=== PATIENT | female | born 1940 | race Caucasian/White ===

== ENCOUNTER 2017-07-13 13:32 | Inpatient (IN) | payer MEDICARE, BC ==
[2017-07-13] MEDS ORDERED: Loperamide 2 MG Cap PO PRN (14:38)
[2017-07-13] MEDS ORDERED: EPINEPHRINE IM PRN (14:38)
[2017-07-13] MEDS: Sodium Chloride 0.9% 10 ML Syringe FLUSH PRN ×2 (15:44→22:48)
[2017-07-13] MEDS: Furosemide 40 MG/4 ML VIAL IV SCH (15:44)
[2017-07-13] MEDS ORDERED: PROTEIN SUPPLEMENT 15 GM PO SCH (20:00)
[2017-07-13] MEDS ORDERED: Warfarin 2 MG Tab PO SCH (20:00)
[2017-07-13] MEDS: Calcium Carbonate/Vitamin D3 1250 MG-200 Unit Tab PO SCH (20:03)
[2017-07-13] MEDS: Ferrous Sulfate 325 MG Tab PO SCH (20:03)
--- NOTE | 2017-07-13 21:31 | HP ---
CHIEF COMPLAINT: Swelling. HISTORY OF PRESENT ILLNESS: This is a 76-year-old female with a known history of diastolic heart failure and EF of 65% back in 2014, who has had previous admissions for edema and anasarca. She also has a pacemaker. She has not had difficulty with shortness of breath, but the swelling is getting to the point where in the last few days she has even had trouble getting up out of a chair. She is minimally dizzy. Her diuresis outpatient is limited by low blood pressures. Her Lasix 40 mg twice daily was switched to Bumex 1 mg twice daily along with Aldactone on Thursday, but her weight is up 1 pound. She has swelling through the abdomen and legs, but not to the point that she had back in 01/27/2016 when she was diuresed for like 24 pounds. Otherwise, she has felt fine. No fevers. No chills. No recent cellulitis like changes. ALLERGIES: Bee stings, AC inhibitors cause cough, Keflex causes a rash. MEDICATION: List is reviewed, she uses ALA 150 twice daily, Claritin-D, Aldactone 25 mg usually at noon, vitamin D 4 days a week, mag oxide 400 daily, Bumex 1 mg twice daily, folic acid daily 1 mg, levothyroxine 88 mcg daily, Minocin 100 mg daily, lactobacillus, warfarin between 2 and 3 mg as per the INR Clinic, Lexapro 1 tablet daily, B12 1000 weekly, EpiPen as needed, B12 100 mcg daily, Os-Gabino 500 twice a day, Imodium as needed, iron one twice daily, vitamin B1 100 mg daily and protein powder 15 g twice daily. PAST MEDICAL HISTORY: 1. Complex including uterine cancer status post chemo and hysterectomy in 2012, complicated by an MRSA infection which led to diskitis and vertebral osteomyelitis at T12 through L1 with surgery in [place] followed by 6 weeks of [place]. Otherwise, she has chronic atrial fibrillation, diastolic heart failure, previous admissions in the fall of 2014 and 11/2015. She used to use metolazone p.r.n., but stopped due to hypotension. 2. History of pacemaker placement after ablation for atrial fibrillation in 2014. Previous thrombosis of the right upper extremity. She is anticoagulated with Coumadin, B12 deficiency, history of gastric bypass, hypothyroidism, vitamin D deficiency, chronic malnutrition with concern for protein losses which has been evaluated in the past. She did well and increased protein supplementation. Albumin is usually around 2.5 to 2.7. 3. Mood disorder, on Lexapro, Froin's syndrome, peripheral neuropathy, previously on Lyrica, but stopped due to peripheral edema, history of C. diff diarrhea, history of shingles, left shoulder 2016 with postherpetic neuralgia, history of recurrent cellulitis in the legs due to Pseudomonas at one point. She has also had Stenotrophomonas maltophilia in the past. Adrenal mass 2 cm in 2015, stable, no further followup was recommended. Chronic anemia. History of hyponatremia. PAST SURGICAL HISTORY: The patient has had a hysterectomy as discussed above. She has had a bilateral knee replacement, left hip replacement and right shoulder replacement. She has had a T12 through L1 laminectomy with T12 through L1 fusion with rods. Gastric bypass noted, cataract surgery, hysterectomy with salpingo oophorectomy, bunionectomy and toe amputation. SOCIAL HISTORY: The patient is . She lives at [facility], but does independent living. She has one son in town, who is a [employer] assistant men's lacrosse coach. FAMILY HISTORY: Both parents are . She has sister and brother who are living. Father had Alzheimer disease and her mother had heart failure, otherwise. REVIEW OF SYSTEMS: General: She has had weight changes. Her weight is up now 10 pounds since 05/25 at least. She has no fever, no chills. HEENT: No trouble swallowing. No sore throat. Cardiac: No chest pain. No palpitations. Respiratory: No shortness of breath. No orthopnea, but she has had edema. No cough, otherwise. Musculoskeletal: No new aches or pains. Skin: No joint rashes. Neurologic: No confusion. She has felt occasionally minimally dizzy, but relates that to blood pressure. Otherwise, all systems reviewed and found to be negative unless otherwise stated. PHYSICAL EXAMINATION: Vital signs: Weight is 210 pounds or 95.2 kg, blood pressure 100/64, temperature 97.9, pulse 73, O2 99 on room air. General: She is in no acute distress. Heart: Regular rate and rhythm. S1, S2 without murmur. Lungs: Sounds are clear to auscultation bilaterally without crackles or wheezes. Abdomen: Positive bowel sounds. Soft and nontender. There is just trace edema located over the left lateral abdominal wall. No sacral edema. Extremities: Shows 3+ edema to her knee and 2+ edema above her gill. Mental status: She is alert and orientated x3. Psych: She is not depressed or anxious. Neck: Has some JVD present, but it is supple without any tracheal deviation or no thyromegaly. DIAGNOSTIC DATA: EKG is done which shows a paced rhythm. Her chest x-ray is pending. TSH is pending. Glucose 123, BUN 18, creatinine 1.3, sodium 139, potassium 4.9, chloride 109, bicarb 22, calcium 7.5, phosphorus 3.7, albumin 2.7. Her magnesium was 1.9. Her white count is 6.1, hemoglobin 10.5, and platelets 244. Her proBNP was also 1843. ASSESSMENT: 1. Acute on chronic diastolic heart failure exacerbation with known EF of 65% back in 2015. 2. Generalized edema and anasarca. The patient has certainly had more issues with this in the past, but I would like to catch this early and get her diuresed. I think she simply just not responding to her oral antibiotics. 3. Morbid obesity with history of gastric bypass. 4. Moderate malnutrition with albumin of 2.7. 5. Remote history of uterine cancer. She has followed with Gynecology. There has been no indication of recurrence. Her last scans were done in 2014, but she has been following with [facility] through [place]. 6. 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 Infectious Disease had recommended lifelong antibiotics. She is on minocycline and tolerating this. 7. History of C. diff. She has not had any recurrence. 8. Hypothyroidism. She is on levothyroxine. We will adjust the dose if needed based on her TSH level. 9. Mood disorder. She will continue her Lexapro. 10.History of pacemaker for atrial fibrillation with ablation. She is on Coumadin. Her level was therapeutic on the , we will repeat tomorrow. 11.Peripheral neuropathy. She had her B12 injection today. She is also on oral B12. PLAN: At this point, the patient is admitted for acute cares. We will diurese her with IV Lasix 40 mg IV twice daily. We will get a chest x-ray. We will get her legs wrapped with Ac wraps. We will get her up and moving and try to mobilize some fluid. I anticipate that after good diuresis, she may be home in 2 days, which she is hopeful of. Otherwise, if she feels lightheaded or dizzy, we will treat her symptomatically for that. We will have her evaluated by PT tomorrow. She is a code level 1. For DVT prophylaxis she is already on Coumadin. MKA: 07/13/2017 16:43:15 MODL: 07/13/2017 21:23:38 /[id number]
[2017-07-14] MEDS: Levothyroxine 88 MCG Tab PO SCH (06:00)
[2017-07-14] MEDS: Spironolactone 25 MG Tab PO SCH (07:35)
[2017-07-14] MEDS: Citalopram 20 MG Tab PO SCH (07:35)
[2017-07-14] MEDS: Ferrous Sulfate 325 MG Tab PO SCH ×2 (07:35→20:22)
[2017-07-14] MEDS: Lactobacillus Rhamnosus GG (Probiotic) Cap PO SCH (07:35)
[2017-07-14] MEDS: Furosemide 40 MG/4 ML VIAL IV SCH (07:35)
[2017-07-14] MEDS: Folic Acid 1 MG Tab PO SCH (07:36)
[2017-07-14] MEDS: Ergocalciferol (Vitamin D2) 50,000 Unit Cap PO SCH (07:36)
[2017-07-14] MEDS: Thiamine 100 MG Tab PO SCH (07:36)
[2017-07-14] MEDS: Magnesium Oxide 400 MG Tab PO SCH (07:36)
[2017-07-14] MEDS: Calcium Carbonate/Vitamin D3 1250 MG-200 Unit Tab PO SCH ×2 (07:36→20:21)
[2017-07-14] MEDS: Cyanocobalamin (Vitamin B12) 250 MCG Tab PO SCH (07:37)
[2017-07-14] MEDS: Sodium Chloride 0.9% 10 ML Syringe FLUSH PRN ×2 (07:38→20:22)
[2017-07-14] MEDS: MINOCYCLINE 100 MG PO SCH (07:39)
[2017-07-14] MEDS ORDERED: Enoxaparin 40 MG/0.4 ML Syringe SUBCUT ONE (08:09)
--- NOTE | 2017-07-14 09:21 | PN ---
Progress Note for MILANA JOHNSON Date: 07/14/2017 Room #: VM.205 SUBJECTIVE: This is hospital day #2 on a 76-year-old admitted for diastolic heart failure exacerbation and anasarca. She was failing outpatient management. She is quite pleased that she has lost nearly 10 pounds. She is down 2.7 L. She is not feeling lightheaded or dizzy. She was urinating so much and incontinent, she did request a Ying. Otherwise, she has had no pain anywhere. Her breathing is good. Her leg swelling is better. OBJECTIVE: Vital Signs: Weight is 89.3 kg, temperature 98.2, pulse 67, blood pressure 110/59, respiratory rate 18, and O2 96 on room air. General: She is in no acute distress. Heart: Regular rate and rhythm. Lungs: Sounds are clear to auscultation bilaterally without crackles or wheezes. Abdomen: Soft and positive bowel sounds. Extremities: Warm and dry. Ac wraps in place. She has just 1+ edema at her gill. Mental Status: She is alert and orientated x3. Skin: She is not pale. LABORATORY DATA: Otherwise, lab work shows a white count of 4.8; hemoglobin 9.5, which is near her baseline; and platelets 182. INR low at 1.3. Sodium 139, potassium 4.6, chloride 108, bicarb 29, BUN 23, creatinine 1.4, calcium 7.3, and glucose 75. ASSESSMENT: 1. [id number] diastolic heart failure exacerbation with known EF of 65%. 2. Generalized anasarca, improving with IV diuresis. 3. Atrial fibrillation status post ablation and pacemaker. She is on Coumadin. She has a subtherapeutic INR. We will give her a DVT prophylaxis dose of Lovenox today. We will continue her on the 4 mg of Coumadin daily and repeat tomorrow. She normally did take 3 mg at home, but she did get 4 mg last night. Otherwise, mild renal insufficiency. Creatinine is up to 1.4. We will continue to monitor. We will repeat that tomorrow. 4. History of gastric bypass surgery and malnutrition. She is on protein supplements, 15 twice daily. 5. B12 deficiency. She just got her shot in the clinic. 6. Mood disorder, stable. 7. History of methicillin-resistant staphylococcus aureus infection with osteomyelitis in the spine. She is on chronic minocycline. She is on precautions for that. 8. Peripheral neuropathy. We will have her up and working with PT. PLAN: At this point, the patient will continue acute cares. I will decrease her Lasix from 40 IV b.i.d. to 20 IV b.i.d. We will keep the Ying in today, but we will remove it tomorrow. She will likely be discharged home tomorrow as long as she is up and doing well with PT and not feeling lightheaded or dizzy. I will likely even discharge her home on the same doses of Lasix. I think that will work better now that some of the fluid is off. I did discuss with her that potentially she was not absorbing her Coumadin and that is maybe why her INR is low. Otherwise, she will continue the Ac wraps. MKA: 07/14/2017 08:47:14 MODL: 07/14/2017 09:10:20 /[id number]
[2017-07-14] MEDS ORDERED: Warfarin 2 MG Tab PO SCH ×2 (20:00)
[2017-07-14] MEDS: Furosemide 20 MG/2 ML VIAL IV SCH (20:34)
[2017-07-15] MEDS: Levothyroxine 88 MCG Tab PO SCH (06:11)
[2017-07-15 06:20] VITALS: BP 114/58
[2017-07-15] MEDS: Calcium Carbonate/Vitamin D3 1250 MG-200 Unit Tab PO SCH (07:38)
[2017-07-15] MEDS: Lactobacillus Rhamnosus GG (Probiotic) Cap PO SCH (07:38)
[2017-07-15] MEDS: Folic Acid 1 MG Tab PO SCH (07:38)
[2017-07-15] MEDS: Furosemide 20 MG/2 ML VIAL IV SCH (07:38)
[2017-07-15] MEDS: Thiamine 100 MG Tab PO SCH (07:38)
[2017-07-15] MEDS: Magnesium Oxide 400 MG Tab PO SCH (07:38)
[2017-07-15] MEDS: Cyanocobalamin (Vitamin B12) 250 MCG Tab PO SCH (07:38)
[2017-07-15] MEDS: Citalopram 20 MG Tab PO SCH (07:38)
[2017-07-15] MEDS: Ergocalciferol (Vitamin D2) 50,000 Unit Cap PO SCH (07:38)
[2017-07-15] MEDS: Spironolactone 25 MG Tab PO SCH (07:38)
[2017-07-15] MEDS: Ferrous Sulfate 325 MG Tab PO SCH (07:38)
[2017-07-15] MEDS: MINOCYCLINE 100 MG PO SCH (07:39)
[2017-07-15] MEDS ORDERED: Enoxaparin 40 MG/0.4 ML Syringe SUBCUT ONE (09:05)
--- NOTE | 2017-07-15 13:53 | PCM.DCSUM1 ---
Discharge Summary - Discharge Data Discharge Date: 07/15/17 Discharge Disposition: Home, W Home Health Agency 06 Condition: Good - Patient Instructions Diet: Usual Diet as Tolerated Activity: As Tolerated Driving: Do Not Drive Showering/Bathing: May Shower Notify Provider of: Fever, Swelling and Redness Other/Special Instructions: 1. Recheck in the clinic on 07/[address] Mohamud. 2. We will set up home health for assistance with medications and leg wraps. They will be able to draw the INR on Thursday. 3. Discontinue the Bumex and we will have you go back to the Lasix 40 mg twice daily - Discharge Plan Prescriptions/Med Rec: Furosemide [Lasix] 40 mg PO BID #60 tablet Home Medications: Home Meds Ferrous Sulfate 325 mg PO BID 09/11/14 [History] Lactobacillus Acidophilus [Acidophilus] 1 tab PO DAILY 09/11/14 [History] Thiamine [Vitamin B-1] 100 mg PO DAILY 09/11/14 [History] Calcium Carbonate [Calcium] 500 mg PO BID 06/06/15 [History] Cholecalciferol (Vitamin D3) [Vitamin D3] 50,000 unit PO MOTUWEFR@06/06/15 [ History] Cyanocobalamin (Vitamin B-12) [Cyanocobalamin Injection] 1,000 mcg IM WEEKLY [History] Cyanocobalamin (Vitamin B-12) [Vitamin B-12] 100 mcg PO DAILY 06/06/15 [History] EPINEPHrine [Epipen] 1 dose IM ASDIRECTED PRN 06/06/15 [History] Levothyroxine [Synthroid] 88 mcg PO ACBREAKFAST 06/06/15 [History] Loperamide [Imodium AD] 2 mg PO ASDIRECTED PRN 06/06/15 [History] Minocycline [Minocin] 100 mg PO DAILY 06/06/15 [History] Protein Supplement [Protein Powder] 15 gm PO BID 06/06/15 [History] Escitalopram [Lexapro] 20 mg PO DAILY 10/30/15 [History] Spironolactone [Aldactone] 25 mg PO DAILY 10/30/15 [History] Warfarin [Coumadin] 4 mg PO MOFR@199910/30/15 [History] Folic Acid 1 mg PO DAILY 07/13/17 [History] Loratadine/Pseudoephedrine [Loratadine-D 24Hr] 1 tab PO DAILY 07/13/17 [History] Magnesium Oxide [Magnesium] 400 mg PO DAILY 07/13/17 [History] Non-Formulary Medication [NF Drug] 150 mg PO BID 07/13/17 [History] Furosemide [Lasix] 40 mg PO BID #60 tablet 07/15/17 [Rx] Referrals: Daniela Mohamud, [Primary Care Provider] - 07/28/17 10:50 am (You have a follow up appt. with Dr. Edilberto Mohamud on July 28, 2017 at 10:50---[facility]) - General Info Date of Service: 07/15/17 Admission Dx/Problem (Free Text: Acute on chronic CHF Atrial fibrillation H/O gastric bypass B12 deficiency H/O MRSA Peripheral neuropathy 76 yo female seen on hospital day 3. Patient was admitted to acute cares for acute exacerbation of CHF. She was started on IV lasix 40 mg BID. Weight did come down about 10 lb in the first day. The Lasix was then switched to 20 mg BID and a gutiérrez was placed due to urinary frequency and incontinence. States that she is doing well today. Weight is down a total of 8 kg. Feels the swelling has improved greatly. Nurses have been using kaylyn wraps to help with swelling. Denies dizziness or lightheadedness. No troubles with SOB or chest tightness. Would like to go home today. Patient will need the assistance of a home health nurse for assistance with medications and leg wraps/compression stockings. INR is only at 1.5 today. She did receive a dose of 40 mg Lovenox yesterday and 4 mg of coumadin HS. She is routinely managed by the [place] anticoagulation clinic. States that she is due for her next INR this thursday (). Patient will need assistance from a home health nurse for medication management and leg wraps/compression stocking. Dr. Mohamud will be overseeing her treatment plan. She will be discharged with [facility]. - Review of Systems General: Denies: Weakness Pulmonary: Denies: Shortness of Breath Cardiovascular: Denies: Chest Pain Gastrointestinal: Denies: Abdominal Pain, Constipation, Diarrhea - Patient Data Vitals - Most Recent: Last Vital Signs Temp 36.5 C 07/15/17 06:00 Pulse 60 07/15/17 06:00 Resp 20 07/15/17 06:00 BP 114/58 L 07/15/17 06:00 Pulse Ox 100 07/15/17 06:00 Weight - Most Recent: 87.09 kg I&O - Last 24 hours: Intake & Output 07/14/17 07/15/17 07/15/17 22:59 06:59 14:59 Intake Total 180 400 420 Output Total 3300 1075 Balance 180 -2900 -655 Lab Results - Last 24 hrs: Laboratory Results - last 24 hr 07/15/17 07/15/17 07/15/17 Range/Units 06:27 06:27 06:27 WBC 5.0 (4.0-10.0) x10^3/uL RBC 3.01 L (4.00-5.50) x10^6/uL Hgb 10.3 L (12.0-16.0) g/dL Hct 30.6 L (33.0-47.0) % MCV 101.7 H (78.0-93.0) fL MCH 34.2 H (26.0-32.0) pg MCHC 33.7 (32.0-36.0) g/dL RDW Coeff of Navin 14.4 (10.0-15.0) % Plt Count 193 (130-400) x10^3/uL Neut % (Auto) 66.5 (50.0-80.0) % Lymph % (Auto) 24.2 L (25.0-50.0) % [place] % (Auto) 7.9 (2.0-11.0) % Eos % (Auto) 1.0 (0.0-4.0) % Baso % (Auto) 0.4 (0.2-1.2) % PT 15.2 H (9.8-11.8) SEC INR 1.4 L (2.0-3.5) Sodium 136 (136-145) mmol/L Potassium 4.3 (3.5-5.1) mmol/L Chloride 104 (98-107) mmol/L Carbon Dioxide 29 (21-32) mmol/L BUN 23 H (7-18) mg/dL Creatinine 1.5 H (0.55-1.02) mg/dL Est Cr Clr Drug Dosing 33.96 mL/min Estimated GFR (MDRD) 34 Glucose 78 (74-106) mg/dL Calcium 7.6 L (8.5-10.1) mg/dL Med Orders - Current: Current Medications Discontinued Medications Calcium Carbonate (Calcium Carbonate/Vitamin D 1250 Mg-200 Unit) 1 tab PO BID [facility] Last Admin: 07/15/17 07:38 Dose: 1 tab Citalopram Hydrobromide (Celexa) 40 mg PO DAILY [facility] Last Admin: 07/15/17 07:38 Dose: 40 mg Cyanocobalamin (Vitamin B12) 125 mcg PO DAILY [facility] Last Admin: 07/15/17 07:38 Dose: 125 mcg Enoxaparin Sodium (Lovenox) 40 mg SUBCUT ONETIME ONE Stop: 07/14/17 08:10 Last Admin: 07/14/17 09:15 Dose: 40 mg Enoxaparin Sodium (Lovenox) 40 mg SUBCUT ONETIME ONE Stop: 07/15/17 09:06 Last Admin: 07/15/17 09:19 Dose: 40 mg Ergocalciferol (Vitamin D2) 50,000 units PO MoTuWeFr@0800 [facility] Last Admin: 07/15/17 07:38 Dose: 50,000 units Ferrous Sulfate (Ferrous Sulfate) 325 mg PO BID [facility] Last Admin: 07/15/17 07:38 Dose: 325 mg Folic Acid (Folic Acid) 1 mg PO DAILY [facility] Last Admin: 07/15/17 07:38 Dose: 1 mg Furosemide (Lasix) 40 mg IV BIDDIURETIC [facility] Last Admin: 07/14/17 07:35 Dose: 40 mg Furosemide (Lasix) 20 mg IV BIDDIURETIC [facility] Last Admin: 07/15/17 07:38 Dose: 20 mg Lactobacillus Rhamnosus (Culturelle) 1 cap PO DAILY [facility] Last Admin: 07/15/17 07:38 Dose: 1 cap Levothyroxine Sodium (Synthroid) 88 mcg PO ACBREAKFAST [facility] Last Admin: 07/15/17 06:11 Dose: 88 mcg Loperamide HCl (Imodium) 2 mg PO ASDIRECTED PRN PRN Reason: Diarrhea Last Admin: 07/14/17 20:22 Dose: 2 mg Magnesium Oxide (Magnesium Oxide) 400 mg PO DAILY [facility] Last Admin: 07/15/17 07:38 Dose: 400 mg Non-Formulary Medication (Epinephrine [Epipen]) 1 dose IM ASDIRECTED PRN PRN Reason: anaphylaxis Non-Formulary Medication (Protein Supplement [Protein Powder]) 15 gm PO BID [facility] Minocycline 100 Mg (CapOwn Med) 0 each PO DAILY [facility] Last Admin: 07/15/17 07:39 Dose: 1 each Sodium Chloride (Saline Flush) 10 ml FLUSH ASDIRECTED PRN PRN Reason: Keep Vein Open Last Admin: 07/14/17 20:22 Dose: 10 ml Spironolactone (Aldactone) 25 mg PO DAILY [facility] Last Admin: 07/15/17 07:38 Dose: 25 mg Thiamine HCl (Vitamin B-1) 100 mg PO DAILY [facility] Last Admin: 07/15/17 07:38 Dose: 100 mg Warfarin Sodium (Coumadin) 3 mg PO SUTUWETHSA@1999 [facility] Warfarin Sodium (Coumadin) 4 mg PO MOFR@1999 [facility] Last Admin: 07/13/17 20:03 Dose: 4 mg Warfarin Sodium (Coumadin) 4 mg PO BEDTIME [facility] Last Admin: 07/14/17 20:21 Dose: 4 mg - Exam General: Reports: Alert, Oriented Lungs: Reports: Clear to Auscultation, Normal Respiratory Effort. Denies: Decreased Breath Sounds, Crackles, Rales, Rhonchi, Wheezing Cardiovascular: Reports: Regular Rate, Regular Rhythm GI/Abdominal Exam: Normal Bowel Sounds, Soft, Non-Tender Extremities: Pedal Edema (trace) Skin: Reports: Warm, Dry Psy/Mental Status: Reports: Alert, Normal Affect, Normal Mood *Q Meaningful Use (DIS) - VTE *Q VTE Criteria *Q: - Stroke *Q Stroke Criteria *Q: - AMI *Q AMI Criteria *Q:
== END 2017-07-15 10:35 | disposition home health service (06) | DRG 292 ==
LOC: VM.MS 14:43
PROVIDERS: ADMIT Internal Medicine; ATTEND Internal Medicine
DX: I50.33 Acute on chronic diastolic (congestive) heart failure (principal); E44.0 Moderate protein-calorie malnutrition; I48.91 Unspecified atrial fibrillation; E53.8 Deficiency of other specified B group vitamins; G62.9 Polyneuropathy, unspecified; F39 Unspecified mood [affective] disorder; E03.9 Hypothyroidism, unspecified; Z68.27 Body mass index [BMI] 27.0-27.9, adult; Z86.14 Personal history of Methicillin resistant Staphylococcus aureus infection; Z95.0 Presence of cardiac pacemaker; Z98.84 Bariatric surgery status; Z79.01 Long term (current) use of anticoagulants
CPT/HCPCS: 36415; 71020; 80048; 85025; 85610; 93005; 97161-GP; 97165-GO; A9270-GY; J1650; J1940; J7050

== ENCOUNTER 2017-12-02 13:36 | Inpatient (IN) | payer MEDICARE, BC ==
[2017-12-02] MEDS ORDERED: Sodium Chloride 0.9% 10 ML Syringe FLUSH PRN (13:37)
[2017-12-02] MEDS: Furosemide 40 MG/4 ML VIAL IV SCH (15:45)
[2017-12-02] MEDS: PROTEIN SUPPLEMENT PO SCH (20:08)
[2017-12-02] MEDS: Calcium Carbonate/Vitamin D3 1250 MG-200 Unit Tab PO SCH (20:08)
[2017-12-02] MEDS: Loperamide 2 MG Cap PO PRN (21:37)
--- NOTE | 2017-12-02 23:25 | HP ---
CHIEF COMPLAINT: Shortness of breath and edema with weight gain. HISTORY OF PRESENT ILLNESS: This is a 77-year-old female who has a longstanding history of lymphedema, chronic diastolic heart failure, her last EF was done after her June admission actually in September was 70% with no pulmonary hypertension. She has mild tricuspid regurgitation. She has had a previous pacemaker and AFib, but no known coronary artery disease. Back in June, the patient was admitted for weight gain and similar problems. She was diuresed appropriately. She was maintained on a regimen of Lasix and Aldactone, but unfortunately despite her weight loss being down over 8 pounds on that admission, she has steadily gained weight back over the past couple of months. We have tried adjusting her diuretics even up to 3 times a day, but unfortunately those were only temporary and she would have low blood pressures like at the dentist she was only 90/55 this morning. She would feel wobbly, need to use her walker, but not necessarily dizzy. Then, over the past 4 to 5 days, she is short of breath even at rest, but starting out with just at exertion. She is going to the bathroom frequently taking the 60 mg twice daily of Lasix. She is also on her Aldactone 25 mg daily. She is on a high-protein diet. She drinks Ensure. She does not eat any extra salt. She even feels a swelling coming up into her abdomen and low back. She has some chills after she has done eating, but no fevers. She has had some loose stools. She is on Imodium for that. She does have a remote history of C. diff. She has been on no recent antibiotics. She does take magnesium. Weight back in June on her admission was 210, then she went down to 202, and now she is unfortunately up to 220 after going down to 209 on 11/09/2017 and being at 217 on 10/26/2017. 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 She has a pacemaker placement after ablation for AFib in 2014. She has had a previous right upper extremity thrombus, B12 deficiency with history of gastric bypass, hypothyroidism, vitamin D deficiency, chronic malnutrition with concern for protein losses, fully evaluated in the past. She has had no proteinuria, albumin usually around 2.5 to 2.7, chronic mood disorder on Lexapro, Froin's syndrome, peripheral neuropathy, stopped Lyrica due to edema, history of C. diff, history of shingles with some postherpetic neuralgia, resolved, recurrent cellulitis in the legs due to Pseudomonas in the past with Stenotrophomonas maltophilia, but no recent infections, stable 2 cm adrenal mass, chronic anemia, and history of hyponatremia. PAST SURGICAL HISTORY: She has had a hysterectomy, bilateral knee replacements, left hip and a right shoulder replacement, T12 through L1 laminectomy and T12 through L1 fusion with rods, gastric bypass, cataract surgery, bunionectomy, and toe amputation. SOCIAL HISTORY: She is . She lives at [facility]. She has a son in town with his family. She has both parents who are , sister and brother who are living, father had Alzheimer's, and mother had heart failure. REVIEW OF SYSTEMS: General: Weight changes as noted above. She has had chills. HEENT: No sore throat. No trouble swallowing. Cardiac: No chest pain. No palpitations. Respiratory: No cough, but shortness of breath noted. Musculoskeletal: She has had difficulty with movements due to edema. Skin: No new redness or warmth to her extremities. Neurologic: No confusion. PHYSICAL EXAMINATION: Vital Signs: Her blood pressure on admission to the hospital and weight I should say was 98.7 kg, her temperature 97.4, pulse 85, blood pressure 111/63, repeat 91/56, respiratory rate 20, and O2 100% on room air. General: She is in no acute distress. Heart: Regular rate and rhythm without murmur. Lungs: Sounds are clear to auscultation, but slightly decreased in the bases. No crackles appreciated. Abdomen: Positive bowel sounds. Soft and nontender. There is no lateral wall edema, but there is 1+ sacral edema. Extremities: A 3+ edema to the knee, 2+ at the thigh. Mental Status: She is alert. She is orientated x3. Psych: She is not depressed or anxious. Neck: She has JVD about mcfp up. Her neck is otherwise supple without lymphadenopathy. There is no thyroid enlargement. IMAGING STUDIES: No EKG was done. She has always been paced rhythm in the past. Chest x-ray in the clinic was showing just very mild early heart failure changes. No significant pulmonary vascular congestion. LABORATORY DATA: Lab work did show her pro-BNP to be elevated in the clinic over 2561 and in the past in June it was 1843. Her CBC shows a white count 7.6, hemoglobin 9.8, platelets 263, glucose 81, BUN 26, creatinine 1.39, potassium 4.1, sodium 136, CO2 23, and calcium 8. INR was on 11/25/2017 2.9. ASSESSMENT: 1. [id number]-[id number] diastolic heart failure exacerbation with known recurrent history of similar admissions for that along with lymphedema. We will initiate diuresis with Lasix 40 mg IV b.i.d. We will also put her on daily Aldactone. We will place a Ying for strict ins and outs. We will repeat lab work in the morning including liver tests include an albumin and an INR test as well. We will continue her home Coumadin doses. 2. Hypotension from diuretics. She needs to be monitored closely in the hospital. We will get support stockings involved. 3. DVT prophylaxis. She is already on warfarin. 4. History of gastric bypass surgery. We will continue her vitamins and supplements outpatient she may continue to receive her B12 injections. 5. Loose stools. This is a chronic problem. I am going to hold her magnesium. We will give it IV if needed. 6. History of MRSA infection. She is on chronic minocycline. We will continue with the same. PLAN: Plan at this point, the patient is admitted under acute cares for IV diuresis. We will monitor electrolytes and blood pressures and weights and urine output closely. I anticipate that she will need at least a couple nights stay in the past if we have diuresed her too quickly she does get lightheaded. We will see how she is doing tomorrow. We may get her up and working with therapy. EZA: 12/02/2017 16:52:51 MODL: 12/02/2017 23:15:50 /[id number]
[2017-12-03] MEDS: Levothyroxine 88 MCG Tab PO SCH (06:08)
[2017-12-03] MEDS: Omeprazole 20 MG Cap.CR PO SCH (06:08)
[2017-12-03] MEDS: Calcium Carbonate/Vitamin D3 1250 MG-200 Unit Tab PO SCH ×2 (07:27→20:04)
[2017-12-03] MEDS: Citalopram 20 MG Tab PO SCH (07:27)
[2017-12-03] MEDS: Cyanocobalamin (Vitamin B12) 250 MCG Tab PO SCH (07:27)
[2017-12-03] MEDS: Folic Acid 1 MG Tab PO SCH (07:27)
[2017-12-03] MEDS: Thiamine 100 MG Tab PO SCH (07:27)
[2017-12-03] MEDS: Furosemide 40 MG/4 ML VIAL IV SCH ×2 (07:27→16:34)
[2017-12-03] MEDS: MINOCYCLINE PO SCH ×2 (07:28→09:54)
[2017-12-03] MEDS: Spironolactone 25 MG Tab PO SCH (07:28)
[2017-12-03] MEDS: Lactobacillus Rhamnosus GG (Probiotic) Cap PO SCH (07:28)
[2017-12-03] MEDS: PROTEIN SUPPLEMENT PO SCH ×2 (07:28→20:05)
[2017-12-03] MEDS: Potassium Chloride 20 MEQ Tab.ER PO SCH (09:26)
--- NOTE | 2017-12-03 10:03 | PN ---
Progress Note for MILANA JOHNSON Date: 12/03/2017 Room #: VM.214 SUBJECTIVE: Hospital day #2, on a 77-year-old admitted with heart failure and lymphedema. The patient is feeling much better today. Her breathing is better. She is down 1.1 L. Her legs are less swollen. She has no chest pain. She continues to have loose stools. She has had about 4 since admission. This is her normal and she does take Imodium. She is not having any stomach pain, fevers. Her white count is normal. OBJECTIVE: Vital Signs: Her temperature 98.2, pulse 80, blood pressure 150/80, respiratory rate 18, and O2 of 100% on room air, otherwise did have some lower readings 91/56 during the night, which is not that abnormal for her. General: She is in no acute distress. Heart: Regular rate and rhythm. S1, S2 without murmur. Lungs: Lung sounds are clear to auscultation bilaterally without crackles or wheezes. Abdomen: Soft, nontender. There is no sacral edema. Extremities: She still has 1+ edema at the shins, but she has no thigh edema. Mental Status: She is alert and orientated x3. LABORATORY DATA: Lab work does show white count of 7.2, hemoglobin 8.7, and platelets 223. INR is 2. Sodium 139, potassium 3.7, chloride 107, bicarbonate 24, BUN 13, creatinine 1.2, glucose 79, calcium 7.4, AST 12, ALT 15, albumin 1.9. ASSESSMENT AND PLAN: 1. Acute on chronic diastolic heart failure exacerbation with lymphedema, improving with IV Lasix. We will continue with the same 40 IV twice daily. She did have some muscle cramping. Electrolytes have been okay, but I am going to add some 20 mEq of potassium daily. She is also on Aldactone. 2. Severe malnutrition with hypoalbuminemia related to some lymphedema. She is on protein supplements. 3. Hypotension from diuretics. We will continue with close monitoring, blood pressure is actually up this morning. 4. Deep vein thrombosis prophylaxis on warfarin, INR therapeutic. 5. History of gastric bypass. 6. Loose stools. This has been a chronic problem. There has been no worsening. She has had Clostridium difficile in the past, but white count is normal. She has not been on any new antibiotics. We will continue to hold magnesium. 7. History of methicillin-resistant Staphylococcus aureus. She is on minocycline. She is on prophylaxis. PLAN: At this point, the patient will continue on acute cares. Given her significant history of C. diff, I will send off a sample for C. diff testing given that she is on chronic antibiotics. We will continue diuresis with IV Lasix. We will have her up and walking in the halls with the aids today and decide whether or not she needs any physical therapy. She is improving and I anticipate, she may be discharged home as soon as tomorrow. We will recheck lab work. MKA: 12/03/2017 08:42:36 MODL: 12/03/2017 09:02:29 /[id number]
[2017-12-03] MEDS: Loperamide 2 MG Cap PO PRN ×2 (13:48→20:04)
[2017-12-04] MEDS: Levothyroxine 88 MCG Tab PO SCH (06:14)
[2017-12-04] MEDS: Omeprazole 20 MG Cap.CR PO SCH (06:14)
[2017-12-04] MEDS: Lactobacillus Rhamnosus GG (Probiotic) Cap PO SCH (07:37)
[2017-12-04] MEDS: Cyanocobalamin (Vitamin B12) 250 MCG Tab PO SCH (07:37)
[2017-12-04] MEDS: Thiamine 100 MG Tab PO SCH (07:37)
[2017-12-04] MEDS: Citalopram 20 MG Tab PO SCH (07:37)
[2017-12-04] MEDS: Furosemide 40 MG/4 ML VIAL IV SCH (07:37)
[2017-12-04] MEDS: Calcium Carbonate/Vitamin D3 1250 MG-200 Unit Tab PO SCH (07:38)
[2017-12-04] MEDS: Spironolactone 25 MG Tab PO SCH (07:38)
[2017-12-04] MEDS: Folic Acid 1 MG Tab PO SCH (07:38)
[2017-12-04] MEDS: Potassium Chloride 20 MEQ Tab.ER PO SCH (07:38)
[2017-12-04] MEDS: PROTEIN SUPPLEMENT PO SCH (07:38)
[2017-12-04] MEDS: MINOCYCLINE PO SCH (07:39)
[2017-12-04 11:22] VITALS: BP 109/62
[2017-12-04] MEDS ORDERED: Furosemide 20 MG Tab PO ONE (12:00)
--- NOTE | 2017-12-05 00:49 | DISCH ---
PRIMARY DISCHARGE DIAGNOSES: 1. Gogak-qg-nsiqipt diastolic heart failure exacerbation with lymphedema, known EF of 70% in 09/2017. 2. Severe malnutrition with hypoalbuminemia, albumin 1.9, chronic, history of gastric bypass on protein supplements. 3. Hypotension from diuretics, stable, she was tolerating them with blood pressures over 100 on discharge and no dizziness. 4. Atrial fibrillation, status post ablation and pacemaker in place. She was therapeutic on warfarin. 5. Chronic loose stools, magnesium held, testing was negative for C. diff, she got good relief from ammonium. 6. 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 7. Chronic B12 deficiency. 8. Previous uterine cancer, vitamin D deficiency, Froin syndrome, peripheral neuropathy, postherpetic neuralgia, previous cellulitis to her lower extremities. REASON FOR ADMISSION: On the date of admission, this 77-year-old female with long-standing edema issues did come to the clinic with increasing weight gain of almost 11 pounds in 3 weeks. She had been increased on Lasix to 60 mg twice daily, which did work for awhile. She was not exactly sure if she was getting 60 as she was not splitting any pills in her packets. We confirmed with the pharmacy she was only getting 40 mg twice daily in her packets. She was also taking Aldactone, but blood pressure at the dentist was around 90. She was feeling lightheaded. Her mobility was affected due to the swelling. She was admitted. She was diuresed for 1.1 L on the 1st day. She had a lot of oral intake. We decreased her fluid intake and had a 2 L fluid restriction. She had another 2.8 L out on the next day. Overall, she lost 13 pounds. Her swelling was greatly improved. Her breathing and shortness of breath were improved. She overall felt better and was stable for discharge. Chest x-ray was showing some fluid. Pro-BNP was also 2500. Her electrolytes were normal, potassium was 3.8, I did give her some potassium supplements while she was here. She is also on Aldactone. Magnesium was 1.8. White count was normal, hemoglobin was stable at 9, on discharge, platelets 222. DISCHARGE PLANS AND INSTRUCTIONS: She will see Dr. Mohamud in the clinic on 12/11/2017 as planned. We will do a BMP and mag at that time. She will resume her previous INR checks. No dosing changes were made. INR was 2 here on 12/03/2017. No medication changes were made other than going back to the 60 mg twice daily of Lasix until her followup visit. She was given written instructions to take the extra 20 mg doses out of her separate supply as the packets, which she will have for another week to week and a half only have 40 mg twice daily. She will continue to hold magnesium supplements. The patient declined any home health or assisted living help. She does have a blood pressure cuff at home. She will hold Aldactone if blood pressure is under 105. She will call the clinic with any questions or concerns. MKA: 12/04/2017 13:15:22 MODL: 12/05/2017 00:42:10 /[id number]
== END 2017-12-04 13:53 | disposition home or self-care (01) | DRG 291 ==
LOC: VM.MS 15:05
PROVIDERS: ADMIT Internal Medicine; ATTEND Internal Medicine
DX: I50.33 Acute on chronic diastolic (congestive) heart failure (principal); E43 Unspecified severe protein-calorie malnutrition; M86.9 Osteomyelitis, unspecified; G95.89 Other specified diseases of spinal cord; B02.29 Other postherpetic nervous system involvement; I89.0 Lymphedema, not elsewhere classified; Z68.31 Body mass index [BMI] 31.0-31.9, adult; E88.09 Other disorders of plasma-protein metabolism, not elsewhere classified; Z98.84 Bariatric surgery status; I95.2 Hypotension due to drugs; T50.2X5A Adverse effect of carbonic-anhydrase inhibitors, benzothiadiazides and other diuretics, initial encounter; Y92.019 Unspecified place in single-family (private) house as the place of occurrence of the external cause; R19.7 Diarrhea, unspecified; I48.91 Unspecified atrial fibrillation; Z95.0 Presence of cardiac pacemaker; E53.8 Deficiency of other specified B group vitamins; Z85.42 Personal history of malignant neoplasm of other parts of uterus; E55.9 Vitamin D deficiency, unspecified; G62.9 Polyneuropathy, unspecified; Z86.14 Personal history of Methicillin resistant Staphylococcus aureus infection; Z79.899 Other long term (current) drug therapy; Z79.01 Long term (current) use of anticoagulants
CPT/HCPCS: 36415; 51702; 80048; 80053; 83735; 85025; 85610; 87493; A9270-GY; J1940; J7050

== ENCOUNTER 2018-02-17 07:16 | Emergency (ER) | payer MEDICARE, BC ==
[2018-02-17 07:34] VITALS: BP 99/43
--- NOTE | 2018-02-17 07:41 | EDM.PDOC ---
ED HPI GENERAL MEDICAL PROBLEM - General Chief Complaint: Laceration Stated Complaint: ER Time Seen by Provider: 02/17/18 07:20 Source of Information: Reports: Patient, Family History Limitations: Reports: No Limitations - History of Present Illness INITIAL COMMENTS - FREE TEXT/NARRATIVE: Patient states she became slightly light headed this morning when using the restroom. After rising up, she felt light headed and fell onto her walker. She denies loss of consciousness or hittting her head. She does have a right forearm laceration. She does take coumadin for a-fib. She does have a history of light headedness with positional changes. She denies all other symptoms. Onset: Today, Sudden Associated Symptoms: Reports: No Other Symptoms - Related Data Allergies Allergy/AdvReac Type Severity Reaction Status Date / Time venom-honey bee Allergy Severe Anaphylactic Verified 02/17/18 07:30 Shock cephalexin monohydrate Allergy Unknown Rash Verified 02/17/18 07:30 [From Keflex] ZO Inhibitors AdvReac Unknown Cough Verified 02/17/18 07:30 Home Meds: Home Meds Ferrous Sulfate 325 mg PO BID 09/11/14 [History] Lactobacillus Acidophilus [Acidophilus] 1 tab PO DAILY 09/11/14 [History] Thiamine [Vitamin B-1] 100 mg PO DAILY 09/11/14 [History] Calcium Carbonate [Calcium] 500 mg PO BID 06/06/15 [History] Cholecalciferol (Vitamin D3) [Vitamin D3] 50,000 unit PO MOTUWEFR@08 06/06/15 [ History] Cyanocobalamin (Vitamin B-12) [Cyanocobalamin Injection] 1,000 mcg IM WEEKLY [History] Cyanocobalamin (Vitamin B-12) [Vitamin B-12] 100 mcg PO DAILY 06/06/15 [History] EPINEPHrine [Epipen] 1 dose IM ASDIRECTED PRN 06/06/15 [History] Levothyroxine [Synthroid] 88 mcg PO ACBREAKFAST 06/06/15 [History] Loperamide [Imodium AD] 2 mg PO ASDIRECTED PRN 06/06/15 [History] Minocycline [Minocin] 100 mg PO DAILY 06/06/15 [History] Protein Supplement [Protein Powder] 15 gm PO BID 06/06/15 [History] Escitalopram [Lexapro] 20 mg PO DAILY 10/30/15 [History] Spironolactone [Aldactone] 25 mg PO DAILY 10/30/15 [History] Warfarin [Coumadin] 3 mg PO DAILY 10/30/15 [History] Folic Acid 1 mg PO DAILY 07/13/17 [History] Magnesium Oxide [Magnesium] 400 mg PO DAILY 07/13/17 [History] Non-Formulary Medication [NF Drug] 150 mg PO BID 07/13/17 [History] Furosemide [Lasix] 60 mg PO BID 12/02/17 [History] Omeprazole 20 mg PO DAILY 12/02/17 [History] Past Medical History HEENT History: Reports: Cataract Cardiovascular History: Reports: Afib, Heart Failure, Pacemaker Respiratory History: Reports: None Gastrointestinal History: Reports: Hemorrhoids Genitourinary History: Reports: UTI, Recurrent REINFORCER History: Reports: Fibroids Musculoskeletal History: Reports: None Psychiatric History: Reports: Depression Endocrine/Metabolic History: Reports: Obesity/BMI 30+, Vitamin D Deficiency Hematologic History: Reports: Anemia, B12 Deficiency, Iron Deficiency Oncologic (Cancer) History: Reports: Uterine Dermatologic History: Reports: Cellulitis - Infectious Disease History Infectious Disease History: Reports: C-Difficile, Chicken Pox, Influenza, MRSA, Shingles - Past Surgical History Head Surgeries/Procedures: Reports: None HEENT Surgical History: Reports: Adenoidectomy, Cataract Surgery, Tonsillectomy Cardiovascular Surgical History: Reports: None GI Surgical History: Reports: Appendectomy, Bariatric Procedure, Cholecystectomy , Colonoscopy Female Surgical History: Reports: Section, Hysterectomy Musculoskeletal Surgical History: Reports: Hip Replacement, Knee Replacement Oncologic Surgical History: Reports: Other (See Below) Other Oncologic Surgeries/Procedures: Hystorectomy Social & Family History - Family History Family Medical History: Noncontributory - Tobacco Use Smoking Status *Q: Former Smoker Years of Tobacco use: 15 Packs/Tins Daily: 1 Used Tobacco, but Quit: Yes Month/Year Tobacco Last Used: 1972 Second Hand Smoke Exposure: No - Caffeine Use Caffeine Use: Reports: Coffee, Tea - Recreational Drug Use Recreational Drug Use: No ED ROS GENERAL - Review of Systems Review Of Systems: See Below Constitutional: Reports: No Symptoms HEENT: Reports: No Symptoms Respiratory: Reports: No Symptoms Cardiovascular: Reports: No Symptoms Endocrine: Reports: No Symptoms GI/Abdominal: Reports: No Symptoms : Reports: No Symptoms Musculoskeletal: Reports: No Symptoms Skin: Reports: Wound Neurological: Reports: No Symptoms Psychiatric: Reports: No Symptoms Hematologic/Lymphatic: Reports: No Symptoms Immunologic: Reports: No Symptoms ED EXAM, SKIN/RASH Exam: See Below Exam Limited By: No Limitations General Appearance: Alert, WD/WN, No Apparent Distress Eye Exam: Bilateral Eye: EOMI, Normal Inspection, PERRL Head: Atraumatic, Normocephalic Neck: Normal Inspection, Supple, Non-Tender, Full Range of Motion Respiratory/Chest: No Respiratory Distress, Lungs Clear, Normal Breath Sounds, No Accessory Muscle Use, Chest Non-Tender Cardiovascular: Normal Peripheral Pulses, Regular Rate, Rhythm, No Edema, No Gallop, No JVD, No Murmur, No Rub Peripheral Pulses: 2+: Posterior Tibial (L), Posterior Tibial (R), Dorsalis Pedis (L), Dorsalis Pedis (R) GI/Abdominal: Normal Bowel Sounds, Soft, Non-Tender, No Organomegaly, No Distention, No Abnormal Bruit, No Mass Extremities: Normal Range of Motion, Non-Tender, Normal Capillary Refill, Pedal Edema Neurological: Alert, Oriented, CN II-XII Intact, Normal Cognition, Normal Gait, Normal Reflexes, No Motor/Sensory Deficits Skin: Wound/Incision (3.3 cm laceration to mid forearm) Location, Skin: Upper Extremity, Right Characteristics: Linear Lymphatic: No Adenopathy Front/Back Body Diagram: 1 - laceration ED SKIN PROCEDURES - Laceration/Wound Repair Right Middle Arm Lac/Wound length In cm: 3.3 Appearance: Linear Distal NVT: Neuro & Vascular Intact, No Tendon Injury Anesthetic Type: Local Local Anesthesia - Lidocaine (Xylocaine): 2% with EPI Local Anesthetic Volume: 3cc Skin Prep: Chlorhexidine (Hibiciens) Exploration/Debridement/Repair: Wound Explored, In a Bloodless Field, Explored to Base, No Foreign Material Found Closed with: Sutures Suture Size: 4-0 Suture Type: Prolene, Running Drain Placement: No Sterile Dressing Applied: Nurse Tetanus Status Addressed: Yes Complications: No Course - Orders/Labs/Meds Orders: Active Orders 24 hr Category Date Time Status Lidocaine 2% w/EPINEPHrine [Xylocaine 2% with Med 02/17/18 07:30 Once EPINEPHrine 1:100,000] 20 ml INJECT ONETIME ONE Meds: Medications Discontinued Medications Generic Name Dose Route Start Last Admin Trade Name Chidi PRN Reason Stop Dose Admin Lidocaine/Epinephrine 20 ml 02/17/18 07:30 Xylocaine 2% With Epinephrine 1:100,000 INJECT 02/17/18 07:31 ONETIME ONE - Re-Assessments/Exams Free Text/Narrative Re-Assessment/Exam: 02/17/18 08:26 Wound sutured with running stitches in 2 locations within the laceration. Area of skin tear without laceration not needing suture repair Departure - Departure Time of Disposition: 08:09 Disposition: Home, Self-Care 01 Condition: Good Clinical Impression: Laceration of right forearm without complication - Discharge Information Instructions: Laceration Care, Adult, [id number], Wound Infection, Easy-to- Read Forms: ED Department Discharge Additional Instructions: Have your sutures removed in 7-10 days at the clinic Keep your dressing on your arm for 24 hours. After that keep clean and dry. You may shower. No soaking in bathwater, dishwater, pools, or other bodies of water until fully healed. Signs of infection include fever over 101.5F, red streak going up and away from the laceration, increased heat, redness, swelling, or drainage from the site. Please call us if you have any questions or concerns. - Problem List & Annotations (1) Laceration of right forearm without complication SNOMED Code(s): 973398120 Code(s): S51.811A - LACERATION W/O FOREIGN BODY OF RIGHT FOREARM, INIT ENCNTR Status: Acute Priority: Low Current Visit: Yes Qualifiers: Encounter type: initial encounter Qualified Code(s): S51.811A - Laceration without foreign body of right forearm, initial encounter - Problem List Review Problem List Initiated/Reviewed/Updated: Yes - My Orders Last 24 Hours: My Active Orders 02/17/18 07:30 Lidocaine 2% w/EPINEPHrine [Xylocaine 2% with EPINEPHrine 1:100,000] 20 ml INJECT ONETIME ONE - Assessment/Plan Last 24 Hours: My Active Orders 02/17/18 07:30 Lidocaine 2% w/EPINEPHrine [Xylocaine 2% with EPINEPHrine 1:100,000] 20 ml INJECT ONETIME ONE Assessment:: right forearm laceration Plan: Have your sutures removed in 7-10 days at the clinic Keep your dressing on your arm for 24 hours. After that keep clean and dry. You may shower. No soaking in bathwater, dishwater, pools, or other bodies of water until fully healed. Signs of infection include fever over 101.5F, red streak going up and away from the laceration, increased heat, redness, swelling, or drainage from the site. Please call us if you have any questions or concerns.
[2018-02-17] MEDS: Lidocaine 2% with EPINEPHrine 1:100,000 20 ML MDV INJECT ONE (07:45)
== END 2018-02-17 08:15 | disposition home or self-care (01) ==
LOC: VM.ED 07:16
DX: S51.811A Laceration without foreign body of right forearm, initial encounter (principal); I48.91 Unspecified atrial fibrillation; I50.9 Heart failure, unspecified; Z95.0 Presence of cardiac pacemaker; Z87.440 Personal history of urinary (tract) infections; Z91.030 Bee allergy status; Z88.1 Allergy status to other antibiotic agents; Z79.899 Other long term (current) drug therapy; Z79.01 Long term (current) use of anticoagulants; Z87.891 Personal history of nicotine dependence; W18.30XA Fall on same level, unspecified, initial encounter; W22.8XXA Striking against or struck by other objects, initial encounter
CPT/HCPCS: 12002; 99283; 99283-GF-25

== ENCOUNTER 2018-04-02 14:31 | Inpatient (IN) | payer MEDICARE, BC ==
[2018-04-02] MEDS ORDERED: Omeprazole 20 MG Cap.CR PO PRN (15:36)
[2018-04-02] MEDS ORDERED: Loperamide 2 MG Cap PO PRN (16:01)
[2018-04-02] MEDS: Furosemide 40 MG/4 ML VIAL IV SCH (16:55)
[2018-04-02] MEDS: Sodium Chloride 0.9% 10 ML Syringe FLUSH PRN (16:56)
[2018-04-02] MEDS ORDERED: Potassium Chloride 10 MEQ Tab.ER PO ONE (17:52)
[2018-04-02] MEDS ORDERED: Warfarin 2 MG Tab PO SCH (20:00)
[2018-04-02] MEDS ORDERED: ALPHA LIPOIC ACID PO SCH (20:00)
[2018-04-02] MEDS: Magnesium Oxide 400 MG Tab PO SCH (21:22)
[2018-04-02] MEDS: Ferrous Sulfate 325 MG Tab PO SCH (21:22)
[2018-04-02] MEDS: Calcium Carbonate/Vitamin D3 1250 MG-200 Unit Tab PO SCH (21:22)
--- NOTE | 2018-04-03 00:22 | HP ---
CHIEF COMPLAINT: Edema and weight gain. HISTORY OF PRESENT ILLNESS: This is a 77-year-old female with multiple previous admissions for the same concern, last being in 11/2017, prior to that was in 2015. She comes into the clinic today with increasing weight gain about 18 pounds over the last month. She called about 2 days previously and we had increased her Lasix from 60 mg twice daily to 80 mg twice daily. Despite doing that and the Aldactone, swelling is not getting any better. She was short of breath on Thursday when she called, but states she is not now, but she is less active. She is having a hard time getting up out of the chair and she feels unstable, but not necessary lightheaded or dizzy. She does have lower blood pressures to begin with. She has been more fatigued. She is sleeping during the day, but she is up at night. Her EF checked in 09/2017 was normal at 70%. She does have chronic atrial fibrillation and has a pacemaker in place. She has normal right ventricular function at that time. She states she has been peeing a lot. She denies any new chest pain. PAST MEDICAL HISTORY: 1. 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 diff, which was all treated. 2. Chronic atrial fibrillation ablation and pacemaker in 2014, still on Coumadin, diastolic heart failure with admissions for diuresis in 2014, 2015, 11/2017 and 03/2018. Moderate malnutrition with albumin 1.8. Previous gastric bypass surgery, previous right upper extremity DVT due to PICC line, B12 deficiency, hypothyroidism, vitamin D deficiency, mood disorder, chronic anemia, peripheral neuropathy, Froin syndrome, previous UTI, previous leg cellulitis, thoracic diskitis with the osteomyelitis as discussed above, status post surgery, previous herpes zoster, right adrenal mass, chronic since 2014, and surgically as listed above. Otherwise, the patient has had shoulder surgery, bilateral knee replacements, left hip, right shoulder, cataract surgery, bunionectomy and another 5th ray partial amputation surgery in 2016 by Podiatry. 3. Hypothyroidism. SOCIAL HISTORY: The patient is . She has a stepdaughter, who lives in town. She also has a son, who is younger, who lives in [facility] professional athletes coach. She is a nonsmoker. FAMILY HISTORY: Both parents are . Her mother had heart failure. Father had Alzheimer's. ALLERGIES: She has had anaphylaxis to bee stings. ZO inhibitors cause cough. Did not tolerate Keflex or Ceftaroline in the past per report for rash. REVIEW OF SYSTEMS: General: Again, she has had a weight gain. She has felt fatigued, but no fever, chills. HEENT: No sore throat. Cardiac: Other than leg swelling, she has had no palpitations. No chest pain. No current shortness of breath, but again not doing much activity. Respiratory: No cough, otherwise. Abdominal: No nausea or vomiting. Otherwise, all systems reviewed and found to be negative unless otherwise stated. PHYSICAL EXAMINATION: Vital Signs: At the hospital on admission does show her to have a weight of 98.7 kg, temperature 97.7, pulse 86, blood pressure 121/69, respiratory rate 16, and O2 of 100 on room air. Clinic vitals were similar other than her blood pressure was 100/68. General: She is in no acute distress. Heart: Regular rate and rhythm without murmur. Lungs: Sounds are completely clear to auscultation bilaterally without crackles or wheezes. Abdomen: Nondistended and nontender. Extremities: She has her support stockings in place. She has 3+ taut edema up to the mid thigh and then more edema actually above the thigh where her stockings are. Her arms otherwise have no edema. She does have a slight little skin red spot on her upper arm that she just noticed. It does not seem to be bothering her. Her eyes are clear. There is no redness. No drainage, but she has had some drainage at times. LAB WORK: Reviewed, does show her white count to be 7.2, hemoglobin is 8.3, it is usually around 9 in the clinic, and platelets 249. INR 2.1. Sodium 140, potassium 3.6, chloride 106, bicarb 24, BUN 26, creatinine 1.3, glucose 86, calcium 7.3, phosphorus 3.4, BNP 2945, and albumin 1.8. Previous proBNP levels are 2561. Otherwise, her kidney function is about at baseline. Chest x-ray; EKG did not get done due to the patient's lack of respiratory symptoms in the fact that I felt this was more anasarca. ASSESSMENT AND PLAN: 1. Anasarca with generalized edema resulting in impaired mobility. 2. Borderline hypotension due to diuretics and medications for edema. 3. History of chronic diastolic heart failure with previous EF 70% in 09/2017. 4. Severe malnutrition with hypoalbuminemia likely leading to her anasarca. This is likely from her previous gastric bypass. She has been on protein supplements in the past. 5. 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 6. Chronic B12 deficiency. 7. Remote history of uterine cancer, peripheral neuropathy. 8. Obesity. The patient is a code level 1. PLAN: At this point, the patient is admitted for admission. We will put her on IV Lasix 40 mg IV b.i.d. We want to be careful not to over diurese her, so she does not become low lightheaded or dizzy particularly with her lower blood pressures. We will continue her Aldactone for now. We will repeat lab work in the morning and potassium is 3.6. I will give her 20 mEq and check a magnesium level tomorrow as well. For DVT prophylaxis, she is therapeutic with warfarin and I will continue her home dose which is 4 mg daily, but 2 mg on Mondays and Fridays. MEDICATIONS: List is reviewed and minocycline 100 mg daily, levothyroxine 88 mcg daily. Recent TSH was normal through the clinic. Magnesium oxide 400 b.i.d., Lasix currently had been 80 mg twice daily, Prilosec 20 mg daily, Aldactone 25 mg daily, Lexapro 20 mg daily, B12 of 1000 mcg daily, vitamin D 50,000 units on Thursday, Thursday, and Fridays, folic acid, Probiotic ALA, protein powder 15 twice a day, B12 of 100 daily plus 1000 mcg shots weekly, Os- Gabino 500 mg, Imodium as needed, iron and B1. MKA: 04/02/2018 17:48:16 MODL: 04/03/2018 00:16:41 /[id number] MTDD
[2018-04-03] MEDS: Furosemide 40 MG/4 ML VIAL IV SCH (07:45)
[2018-04-03] MEDS: Lactobacillus Rhamnosus GG (Probiotic) Cap PO SCH (07:45)
[2018-04-03] MEDS: Magnesium Oxide 400 MG Tab PO SCH ×2 (07:45→20:22)
[2018-04-03] MEDS: Ferrous Sulfate 325 MG Tab PO SCH ×2 (07:45→20:22)
[2018-04-03] MEDS: Thiamine 100 MG Tab PO SCH (07:45)
[2018-04-03] MEDS: Folic Acid 1 MG Tab PO SCH (07:45)
[2018-04-03] MEDS: Spironolactone 25 MG Tab PO SCH (07:45)
[2018-04-03] MEDS: Calcium Carbonate/Vitamin D3 1250 MG-200 Unit Tab PO SCH ×2 (07:45→20:22)
[2018-04-03] MEDS: Levothyroxine 88 MCG Tab PO SCH (07:45)
[2018-04-03] MEDS ORDERED: Non-Formulary Medication 1 Each (Cyanocobalamin (Vitamin B-12) [Vitamin B-12] 100 MCG) PO SCH (08:00)
[2018-04-03] MEDS ORDERED: Warfarin 2 MG Tab PO SCH (08:00)
--- NOTE | 2018-04-03 10:06 | PCM.PN ---
- General Info Date of Service: 04/03/18 Subjective Update: 77 yo female on hospital day #2 following admission for anasarca related to hypoalbuminemia. She reports she is feeling much better today. Her legs are less edematous and she is able to bend and lift them more easily. She denies any shortness of breath or chest pain. No lightheadedness but she has not been out of bed yet this morning. She notes that she lost about 8 pounds since yesterday, which is not unusual for her when she gets admitted for this. Nursing was concerned about some redness on the front of her legs but she notes that this has improved since she has had her legs up in bed. - Review of Systems General: Reports: No Symptoms HEENT: Reports: No Symptoms Pulmonary: Reports: No Symptoms Cardiovascular: Reports: No Symptoms Gastrointestinal: Reports: No Symptoms Genitourinary: Reports: No Symptoms Musculoskeletal: Reports: No Symptoms - Patient Data Vitals - Most Recent: Last Vital Signs Temp 36.6 C 04/03/18 06:00 Pulse 60 04/03/18 06:00 Resp 18 04/03/18 06:00 BP 107/59 L 04/03/18 06:00 Pulse Ox 95 04/03/18 06:00 Weight - Most Recent: 95.309 kg I&O - Last 24 Hours: Intake & Output 04/02/18 04/03/18 04/03/18 22:59 06:59 14:59 Intake Total 840 1640 360 Output Total 1600 2200 Balance -760 -560 360 Lab Results Last 24 Hours: Laboratory Results - last 24 hr 04/02/18 04/02/18 04/02/18 Range/Units 15:45 15:45 15:45 WBC 7.2 (4.0-10.0) x10^3/uL RBC 2.36 L (4.00-5.50) x10^6/uL Hgb 8.3 L (12.0-16.0) g/dL Hct 26.2 L (33.0-47.0) % MCV 111.0 H (78.0-93.0) fL MCH 35.2 H (26.0-32.0) pg MCHC 31.7 L (32.0-36.0) g/dL RDW Coeff of Navin 16.4 H (10.0-15.0) % Plt Count 249 (130-400) x10^3/uL Neut % (Auto) 81.9 H (50.0-80.0) % Lymph % (Auto) 11.9 L (25.0-50.0) % Stephenson % (Auto) 5.8 (2.0-11.0) % Eos % (Auto) 0.3 (0.0-4.0) % Baso % (Auto) 0.1 L (0.2-1.2) % PT 22.2 H (9.6-11.4) SEC INR 2.1 (2.0-3.5) Sodium (136-145) mmol/L Potassium (3.5-5.1) mmol/L Chloride (98-107) mmol/L Carbon Dioxide (21-32) mmol/L BUN (7-18) mg/dL Creatinine (0.55-1.02) mg/dL Est Cr Clr Drug Dosing mL/min Estimated GFR (MDRD) BUN/Creatinine Ratio Glucose (74-106) mg/dL Calcium (8.5-10.1) mg/dL Corrected Calcium (8.5-10.1) mg/dL Phosphorus (2.6-4.7) mg/dL Magnesium (1.8-2.4) mg/dL NT-Pro-B Natriuret Pep 2945 H (<=450) pg/mL Albumin (3.4-5.0) g/dL 04/02/18 04/03/18 04/03/18 Range/Units 15:45 07:20 07:20 WBC 6.1 (4.0-10.0) x10^3/uL RBC 2.27 L (4.00-5.50) x10^6/uL Hgb 8.0 L (12.0-16.0) g/dL Hct 24.8 L (33.0-47.0) % MCV 109.3 H (78.0-93.0) fL MCH 35.2 H (26.0-32.0) pg MCHC 32.3 (32.0-36.0) g/dL RDW Coeff of Navin 16.1 H (10.0-15.0) % Plt Count 235 (130-400) x10^3/uL Neut % (Auto) 72.9 (50.0-80.0) % Lymph % (Auto) 19.8 L (25.0-50.0) % Stephenson % (Auto) 6.4 (2.0-11.0) % Eos % (Auto) 0.7 (0.0-4.0) % Baso % (Auto) 0.2 (0.2-1.2) % PT (9.6-11.4) SEC INR (2.0-3.5) Sodium 140 139 (136-145) mmol/L Potassium 3.6 3.9 (3.5-5.1) mmol/L Chloride 106 107 (98-107) mmol/L Carbon Dioxide 24 23 (21-32) mmol/L BUN 26 H 27 H (7-18) mg/dL Creatinine 1.3 H 1.2 H (0.55-1.02) mg/dL Est Cr Clr Drug Dosing 37.27 40.38 mL/min Estimated GFR (MDRD) 40 43 BUN/Creatinine Ratio 20.00 22.50 Glucose 86 74 (74-106) mg/dL Calcium 7.3 L 7.6 L (8.5-10.1) mg/dL Corrected Calcium 9.06 9.52 (8.5-10.1) mg/dL Phosphorus 3.4 3.2 (2.6-4.7) mg/dL Magnesium 1.8 (1.8-2.4) mg/dL NT-Pro-B Natriuret Pep (<=450) pg/mL Albumin 1.8 L 1.6 L (3.4-5.0) g/dL Med Orders - Current: Current Medications Calcium Carbonate (Calcium Carbonate/Vitamin D 1250 Mg-200 Unit) 1 tab PO BID [facility] Last Admin: 04/03/18 07:45 Dose: 1 tab Cyanocobalamin (Vitamin B12) 1,000 mcg IM WEEKLY [facility] Ferrous Sulfate (Ferrous Sulfate) 325 mg PO BID [facility] Last Admin: 04/03/18 07:45 Dose: 325 mg Folic Acid (Folic Acid) 1 mg PO DAILY [facility] Last Admin: 04/03/18 07:45 Dose: 1 mg Furosemide (Lasix) 40 mg IV BIDDIURETIC [facility] Last Admin: 04/03/18 07:45 Dose: 40 mg Lactobacillus Rhamnosus (Culturelle) 1 cap PO DAILY [facility] Last Admin: 04/03/18 07:45 Dose: 1 cap Levothyroxine Sodium (Synthroid) 88 mcg PO DAILY [facility] Last Admin: 04/03/18 07:45 Dose: 88 mcg Loperamide HCl (Imodium) 2 - 4 mg PO ASDIRECTED PRN PRN Reason: DIARRHEA Magnesium Oxide (Magnesium Oxide) 400 mg PO BID [facility] Last Admin: 04/03/18 07:45 Dose: 400 mg Non-Formulary Medication (Escitalopram [Lexapro]) 20 mg PO DAILY [facility] Non-Formulary Medication (Minocycline [Minocin]) 100 mg PO DAILY [facility] Omeprazole (Omeprazole) 20 mg PO DAILY PRN PRN Reason: Heartburn Sodium Chloride (Saline Flush) 10 ml FLUSH ASDIRECTED PRN PRN Reason: Keep Vein Open Last Admin: 04/02/18 16:56 Dose: 10 ml Spironolactone (Aldactone) 25 mg PO DAILY [facility] Last Admin: 04/03/18 07:45 Dose: 25 mg Thiamine HCl (Vitamin B-1) 100 mg PO DAILY [facility] Last Admin: 04/03/18 07:45 Dose: 100 mg Warfarin Sodium (Coumadin) 4 mg PO SUTUWETHSA@2000 [facility] Warfarin Sodium (Coumadin) 2 mg PO MOFR@1999 [facility] Last Admin: 04/02/18 21:23 Dose: 2 mg Discontinued Medications Non-Formulary Medication (Alpha Lipoic Acid [Alpha Lipoic Acid]) 150 mg PO BID [facility] Last Admin: 04/03/18 07:23 Dose: Not Given Non-Formulary Medication (Cyanocobalamin (Vitamin B-12) [Vitamin B-12]) 100 mcg PO DAILY [facility] Potassium Chloride (Klor-Con 10) 20 meq PO ONETIME ONE Stop: 04/02/18 17:53 Last Admin: 04/02/18 19:02 Dose: 20 meq Warfarin Sodium (Coumadin) 4 mg PO DAILY [facility] - Exam General: Alert, Oriented, Cooperative, No Acute Distress HEENT: Mucous Membr. Moist/[place] Neck: Supple, Trachea Midline, No Thyromegaly. No: Lymphadenopathy Lungs: Clear to Auscultation, Normal Respiratory Effort Cardiovascular: Regular Rate, Regular Rhythm, No Murmurs GI/Abdominal Exam: Normal Bowel Sounds, Soft, Non-Tender, No Organomegaly, No Distention, No Mass Extremities: Normal Inspection (no erythema noted), Other (2+ edema to the thighs bilaterally - this is easily compressible) Peripheral Pulses: 2+: Radial (L), Radial (R) Skin: Warm, Dry, Intact - Problem List & Annotations (1) Anasarca SNOMED Code(s): 887068791, 802358623 Code(s): R60.1 - GENERALIZED EDEMA Status: Acute Current Visit: No Annotation/Comment:: - Improved significantly with nearly 8 pound weight loss overnight. - Will transition to PO lasix (80 mg) this afternoon in hopes of avoiding rapid over-diuresis. - Spironolactone is continued. (2) Diastolic heart failure SNOMED Code(s): 106646099 Code(s): I50.30 - UNSPECIFIED DIASTOLIC (CONGESTIVE) HEART FAILURE Status: Chronic Current Visit: No Qualifiers: Heart failure chronicity: chronic Qualified Code(s): I50.32 - Chronic diastolic (congestive) heart failure Annotation/Comment:: - No evidence of any acute CHF. - Diuretic dosing as above. (3) Malnutrition SNOMED Code(s): 25749352 Code(s): E46 - UNSPECIFIED PROTEIN-CALORIE MALNUTRITION Status: Chronic Current Visit: Yes Qualifiers: Malnutrition type: unspecified type Qualified Code(s): E46 - Unspecified protein-calorie malnutrition Annotation/Comment:: - Secondary to previous bariatric surgery. - May need to see freight representative as an outpatient if not done recently. (4) Hypoalbuminemia SNOMED Code(s): 305815874 Code(s): E88.09 - OTH DISORDERS OF PLASMA-PROTEIN METABOLISM, NEC Status: Chronic Current Visit: Yes Annotation/Comment:: - Albumin chronically low. - Patient had been on protein supplements in the past and may be revisited by PCP. (5) Anemia SNOMED Code(s): 605414698 Code(s): D64.9 - ANEMIA, UNSPECIFIED Status: Chronic Current Visit: No Annotation/Comment:: - Hemoglobin is stable from admission. - Will monitor daily. - Also likely nutritional. (6) Atrial fibrillation SNOMED Code(s): 44851079 Code(s): I48.91 - UNSPECIFIED ATRIAL FIBRILLATION Status: Chronic Current Visit: No Qualifiers: Atrial fibrillation type: persistent Qualified Code(s): I48.1 - Persistent atrial fibrillation Annotation/Comment:: - S/P ablation and pacemaker placement. - Has not been on beta-blockers as BP cannot allow. - Rates appropriate. - Warfarin continued. (7) Septic discitis of thoracic region SNOMED Code(s): 016157171, 075173658 Code(s): M46.44 - DISCITIS, UNSPECIFIED, THORACIC REGION Status: Chronic Current Visit: No Annotation/Comment:: - History of MRSA from port while undergoing chemo for uterine CA. - On chronic suppression with minocycline. (8) Vitamin B12 deficiency (non anemic) SNOMED Code(s): 69283426 Code(s): E53.8 - DEFICIENCY OF OTHER SPECIFIED B GROUP VITAMINS Status: Chronic Current Visit: No Annotation/Comment:: - B12 supplement continued. - Problem List Review Problem List Initiated/Reviewed/Updated: Yes - Assessment Assessment:: 77 yo female admitted with anasarca resulting in limited range of motion in the lower extremities. This is somewhat improved today but she is not back to baseline. - Plan Plan:: See details under problems above. Will transition to PO lasix this afternoon and see how she does. Has catheter in place for strict I/O as well as limited mobility. Hopefully we will be able to get this out in the morning. She will remain on acute - anticipate dismissal either tomorrow or the following day. Otherwise, home medications continued. She is therapeutic on warfarin so does not require other VTE prophylaxis. She is full code.
[2018-04-03] MEDS: Furosemide 80 MG Tab PO SCH (16:41)
[2018-04-03] MEDS: Warfarin 2 MG Tab PO SCH (20:22)
[2018-04-04] MEDS: Lactobacillus Rhamnosus GG (Probiotic) Cap PO SCH (07:21)
[2018-04-04] MEDS: Magnesium Oxide 400 MG Tab PO SCH ×2 (07:21→19:43)
[2018-04-04] MEDS: Levothyroxine 88 MCG Tab PO SCH (07:21)
[2018-04-04] MEDS: Calcium Carbonate/Vitamin D3 1250 MG-200 Unit Tab PO SCH ×2 (07:21→19:43)
[2018-04-04] MEDS: Thiamine 100 MG Tab PO SCH (07:21)
[2018-04-04] MEDS: Ferrous Sulfate 325 MG Tab PO SCH ×2 (07:21→19:43)
[2018-04-04] MEDS: Folic Acid 1 MG Tab PO SCH (07:21)
[2018-04-04] MEDS: Spironolactone 25 MG Tab PO SCH (07:21)
[2018-04-04] MEDS: Furosemide 80 MG Tab PO SCH (07:21)
--- NOTE | 2018-04-04 09:05 | PCM.PN ---
- General Info Date of Service: 04/04/18 Subjective Update: 77 yo female hospital day #3 admitted with anasarca secondary to malnutrition and hypoalbuminemia in the setting of previous gastric bypass. Lost 8 pounds overnight initially so was transitioned to PO lasix yesterday. Only lost another 2 pounds overnight. Does feel leg edema and mobility is improved. She was able to walk in the hallways with nursing yesterday without any issues. No shortness of breath. Did strain her neck overnight and has pain on the left side at the base of the skull. Does not feel tylenol helped much. She feels this is muscular. She has had this at times at home but does not usually last as long. Also had dry eyes this morning but found some relief with drops from nursing. - Review of Systems General: Reports: No Symptoms HEENT: Reports: Other (dry eyes) Pulmonary: Reports: No Symptoms Cardiovascular: Reports: No Symptoms Gastrointestinal: Reports: No Symptoms Genitourinary: Reports: No Symptoms Musculoskeletal: Reports: Neck Pain Skin: Reports: No Symptoms - Patient Data Vitals - Most Recent: Last Vital Signs Temp 36.8 C 04/04/18 06:00 Pulse 71 04/04/18 06:00 Resp 18 04/04/18 06:00 BP 109/57 L 04/04/18 06:00 Pulse Ox 99 04/04/18 06:00 Weight - Most Recent: 94.402 kg I&O - Last 24 Hours: Intake & Output 04/03/18 04/04/18 04/04/18 22:59 06:59 14:59 Intake Total 2380 980 540 Output Total 400 2800 Balance 1979 -1820 540 Lab Results Last 24 Hours: Laboratory Results - last 24 hr 04/04/18 04/04/18 Range/Units 07:32 07:32 WBC 6.5 (4.0-10.0) x10^3/uL RBC 2.34 L (4.00-5.50) x10^6/uL Hgb 8.3 L (12.0-16.0) g/dL Hct 25.8 L (33.0-47.0) % MCV 110.3 H (78.0-93.0) fL MCH 35.5 H (26.0-32.0) pg MCHC 32.2 (32.0-36.0) g/dL RDW Coeff of Navin 16.0 H (10.0-15.0) % Plt Count 255 (130-400) x10^3/uL Neut % (Auto) 73.2 (50.0-80.0) % Lymph % (Auto) 18.8 L (25.0-50.0) % [place] % (Auto) 7.2 (2.0-11.0) % Eos % (Auto) 0.8 (0.0-4.0) % Baso % (Auto) 0.0 L (0.2-1.2) % Sodium 141 (136-145) mmol/L Potassium 3.8 (3.5-5.1) mmol/L Chloride 108 H (98-107) mmol/L Carbon Dioxide 26 (21-32) mmol/L Anion Gap 10.8 (10-20) mmol/L BUN 24 H (7-18) mg/dL Creatinine 1.3 H (0.55-1.02) mg/dL Est Cr Clr Drug Dosing 37.27 mL/min Estimated GFR (MDRD) 40 Glucose 74 (74-106) mg/dL Calcium 7.4 L (8.5-10.1) mg/dL Med Orders - Current: Current Medications Calcium Carbonate (Calcium Carbonate/Vitamin D 1250 Mg-200 Unit) 1 tab PO BID [facility] Last Admin: 04/04/18 07:21 Dose: 1 tab Cyanocobalamin (Vitamin B12) 1,000 mcg IM WEEKLY [facility] Ferrous Sulfate (Ferrous Sulfate) 325 mg PO BID [facility] Last Admin: 04/04/18 07:21 Dose: 325 mg Folic Acid (Folic Acid) 1 mg PO DAILY [facility] Last Admin: 04/04/18 07:21 Dose: 1 mg Furosemide (Lasix) 40 mg IV ONETIME ONE Stop: 04/04/18 14:01 Lactobacillus Rhamnosus (Culturelle) 1 cap PO DAILY [facility] Last Admin: 04/04/18 07:21 Dose: 1 cap Levothyroxine Sodium (Synthroid) 88 mcg PO DAILY [facility] Last Admin: 04/04/18 07:21 Dose: 88 mcg Loperamide HCl (Imodium) 2 - 4 mg PO ASDIRECTED PRN PRN Reason: DIARRHEA Last Admin: 04/04/18 07:23 Dose: 4 mg Magnesium Oxide (Magnesium Oxide) 400 mg PO BID [facility] Last Admin: 04/04/18 07:21 Dose: 400 mg (Escitalopram [ Lexapro] 20 Mg)*Pt Own Med* 20 mg PO DAILY [facility] Last Admin: 04/04/18 07:21 Dose: 20 mg (Minocycline [ Minocin] 100 Mg)*Pt Own Med* 100 mg PO DAILY [facility] Last Admin: 04/04/18 07:21 Dose: 100 mg Omeprazole (Omeprazole) 20 mg PO DAILY PRN PRN Reason: Heartburn Sodium Chloride (Saline Flush) 10 ml FLUSH ASDIRECTED PRN PRN Reason: Keep Vein Open Last Admin: 04/02/18 16:56 Dose: 10 ml Spironolactone (Aldactone) 25 mg PO DAILY [facility] Last Admin: 04/04/18 07:21 Dose: 25 mg Thiamine HCl (Vitamin B-1) 100 mg PO DAILY [facility] Last Admin: 04/04/18 07:21 Dose: 100 mg Warfarin Sodium (Coumadin) 4 mg PO SUTUWETHSA@1999 [facility] Last Admin: 04/03/18 20:22 Dose: 4 mg Warfarin Sodium (Coumadin) 2 mg PO MOFR@1999 [facility] Last Admin: 04/02/18 21:23 Dose: 2 mg Discontinued Medications Furosemide (Lasix) 40 mg IV BIDDIURETIC [facility] Last Admin: 04/03/18 07:45 Dose: 40 mg Furosemide (Lasix) 80 mg PO BIDDIURETIC [facility] Last Admin: 04/04/18 07:21 Dose: 80 mg Non-Formulary Medication (Alpha Lipoic Acid [Alpha Lipoic Acid]) 150 mg PO BID [facility] Last Admin: 04/03/18 07:23 Dose: Not Given Non-Formulary Medication (Cyanocobalamin (Vitamin B-12) [Vitamin B-12]) 100 mcg PO DAILY [facility] Potassium Chloride (Klor-Con 10) 20 meq PO ONETIME ONE Stop: 04/02/18 17:53 Last Admin: 04/02/18 19:02 Dose: 20 meq Warfarin Sodium (Coumadin) 4 mg PO DAILY [facility] - Exam General: Alert, Cooperative, No Acute Distress HEENT: Mucous Membr. Moist/[place] Neck: Supple, Trachea Midline, No Thyromegaly. No: Lymphadenopathy Lungs: Clear to Auscultation, Normal Respiratory Effort Cardiovascular: Regular Rate, Regular Rhythm, No Murmurs GI/Abdominal Exam: Normal Bowel Sounds, Soft, Non-Tender, No Distention Back Exam: Muscle Spasm (left trapezius), Paraspinal Tenderness (left trapezius) Extremities: Other (2+ edema still but even less taught then yesterday; mobility is further improved) Peripheral Pulses: 2+: Radial (L), Radial (R) Skin: Warm, Dry, Intact - Problem List & Annotations (1) Anasarca SNOMED Code(s): 751790350, 711433772 Code(s): R60.1 - GENERALIZED EDEMA Status: Acute Current Visit: No Annotation/Comment:: - Mobility improved but significantly less diuresis overnight with transition to PO lasix. - She is high risk for re-admission if discharged prematurely on oral diuretics. - Therefore, would recommend further IV dosing today and then reconsideration for possible discharge tomorrow. Patient agrees. - Will do a dose of 40 mg IV lasix this pm. - Spironolactone is continued. - Will d/c the catheter today and do a voiding trial now that her mobility is improved. (2) Dry eyes SNOMED Code(s): 734823568 Code(s): H04.123 - DRY EYE SYNDROME OF BILATERAL LACRIMAL GLANDS Status: Acute Current Visit: Yes Annotation/Comment:: - No evidence of conjunctivitis. - Will continue artificial tears. (3) Neck strain SNOMED Code(s): 008816910 Code(s): S16.1XXA - STRAIN OF MUSCLE, FASCIA AND TENDON AT NECK LEVEL, INIT Status: Acute Current Visit: Yes Qualifiers: Encounter type: initial encounter Qualified Code(s): S16.1XXA - Strain of muscle, fascia and tendon at neck level, initial encounter Annotation/Comment:: - All muscular in nature. - Will do tylenol, biofreeze, and a heating pad. - NSAID's contraindicated in the setting of previous gastric bypass, especially with being on warfarin. (4) Diastolic heart failure SNOMED Code(s): 512813760 Code(s): I50.30 - UNSPECIFIED DIASTOLIC (CONGESTIVE) HEART FAILURE Status: Chronic Current Visit: No Qualifiers: Heart failure chronicity: chronic Qualified Code(s): I50.32 - Chronic diastolic (congestive) heart failure Annotation/Comment:: - No evidence of any acute CHF. - Diuretic dosing as above. (5) Malnutrition SNOMED Code(s): 12124228 Code(s): E46 - UNSPECIFIED PROTEIN-CALORIE MALNUTRITION Status: Chronic Current Visit: Yes Qualifiers: Malnutrition type: unspecified type Qualified Code(s): E46 - Unspecified protein-calorie malnutrition Annotation/Comment:: - Secondary to previous bariatric surgery. - May need to see paper slitter as an outpatient if not done recently. (6) Hypoalbuminemia SNOMED Code(s): 993810911 Code(s): E88.09 - OTH DISORDERS OF PLASMA-PROTEIN METABOLISM, NEC Status: Chronic Current Visit: Yes Annotation/Comment:: - Albumin chronically low. - Patient had been on protein supplements in the past and may be revisited by PCP. (7) Anemia SNOMED Code(s): 414242452 Code(s): D64.9 - ANEMIA, UNSPECIFIED Status: Chronic Current Visit: No Annotation/Comment:: - Hemoglobin is stable from admission. - Will monitor daily. - Also likely nutritional. (8) Atrial fibrillation SNOMED Code(s): 80478844 Code(s): I48.91 - UNSPECIFIED ATRIAL FIBRILLATION Status: Chronic Current Visit: No Qualifiers: Atrial fibrillation type: persistent Qualified Code(s): I48.1 - Persistent atrial fibrillation Annotation/Comment:: - S/P ablation and pacemaker placement. - Has not been on beta-blockers as BP cannot allow. - Rates appropriate. - Warfarin continued. 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 - On chronic suppression with minocycline. (10) Vitamin B12 deficiency (non anemic) SNOMED Code(s): 75584847 Code(s): E53.8 - DEFICIENCY OF OTHER SPECIFIED B GROUP VITAMINS Status: Chronic Current Visit: No Annotation/Comment:: - B12 supplement continued. - Problem List Review Problem List Initiated/Reviewed/Updated: Yes - My Orders Last 24 Hours: My Active Orders 04/04/18 14:00 Furosemide [Lasix] 40 mg IV ONETIME ONE - Assessment Assessment:: 77 yo female admitted with anasarca resulting in limited range of motion in the lower extremities. Mobility continues to improve significantly but she is still ~10 pounds above baseline and only lost 2 pounds overnight. - Plan Plan:: See details under problems above. She will get an IV dose of lasix this pm given significant decrease in diuresis overnight. Catheter no longer needed for strict I/O as we have seen how she responds to the lasix dosing and not for mobility either as she has been able to walk now without significant issues. Will do artificial tears for her dry eyes and conservative measures for her neck. Otherwise, home medications continued. Anticipate dismissal tomorrow. She is therapeutic on warfarin so does not require other VTE prophylaxis. She is full code.
[2018-04-04] MEDS ORDERED: Dextran 70/Hypromellose/PF Ophth Soln 0.9 ML UD EYEBOTH PRN (09:18)
[2018-04-04] MEDS ORDERED: Acetaminophen 500 MG Tab PO PRN (09:18)
[2018-04-04] MEDS: Sodium Chloride 0.9% 10 ML Syringe FLUSH PRN (13:29)
[2018-04-04] MEDS ORDERED: Furosemide 40 MG/4 ML VIAL IV ONE (14:00)
[2018-04-04] MEDS: Warfarin 2 MG Tab PO SCH (19:43)
[2018-04-05] MEDS: Calcium Carbonate/Vitamin D3 1250 MG-200 Unit Tab PO SCH (08:05)
[2018-04-05] MEDS: Magnesium Oxide 400 MG Tab PO SCH (08:05)
[2018-04-05] MEDS: Ferrous Sulfate 325 MG Tab PO SCH (08:05)
[2018-04-05] MEDS: Levothyroxine 88 MCG Tab PO SCH (08:05)
[2018-04-05] MEDS: Spironolactone 25 MG Tab PO SCH (08:05)
[2018-04-05] MEDS: Lactobacillus Rhamnosus GG (Probiotic) Cap PO SCH (08:05)
[2018-04-05] MEDS: Folic Acid 1 MG Tab PO SCH (08:05)
[2018-04-05] MEDS: Thiamine 100 MG Tab PO SCH (08:05)
[2018-04-05] MEDS ORDERED: Furosemide 80 MG Tab PO ONE (08:51)
[2018-04-05] MEDS ORDERED: Cyanocobalamin (Vitamin B12) 1,000 MCG/ML SDV IM SCH (09:15)
[2018-04-05 10:04] VITALS: BP 125/63
--- NOTE | 2018-04-05 14:21 | DISCH ---
PRIMARY DISCHARGE DIAGNOSES: 1. Generalized edema with anasarca affecting mobility, cause is probably malnutrition. 2. History of chronic diastolic heart failure, stable, without exacerbation. EF was 70% in September 2017. 3. Severe malnutrition and hypoalbuminemia due to previous gastric bypass surgery. The patient's albumin level was 1.6 on discharge. She is on protein supplements. 4. 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 5. Loose stools, chronic. Patient has had previous Clostridium difficile, but she did not feel like her symptoms had worsened to that degree. She has not been on any other recent antibiotics. 6. Chronic B12 deficiency. 7. Remote history of uterine cancer with peripheral neuropathy. 8. Obesity. 9. History of atrial fibrillation, on Coumadin. 10.Chronic anemia. 11.Chronic kidney disease, stage III with baseline GFR around 38. REASON FOR ADMISSION: On the date of admission, this 77-year-old female had come to the clinic. She had gained over 18 pounds in the last month. She was having some shortness of breath earlier in the week. We did increase her Lasix to 80 mg twice daily. Her breathing was better. She was urinating quite a bit, but still she was having significant leg swelling that was affecting her mobility. She was having difficulty getting up out of a chair. She was feeling lightheaded as her blood pressures were running in the 90-100 systolic range. The patient had been admitted to the hospital about 4 months ago for a similar presentation and had previous admissions for the same in the past. Therefore, she was agreeable to admission. The patient was admitted. She was given IV Lasix 40 mg IV twice a day. She diuresed adequately and lost 8 pounds in the first 24 hours. She was not lightheaded or dizzy. Eventually, she was transitioned over to oral Lasix, however, did not diurese as well, so did receive another dose of IV Lasix yesterday. Ying catheter was removed. Her leg swelling is significantly improved. She was up. She was moving around, breathing well. Blood pressures were actually in the 120 range. Her weight on discharge was down to 92.8 kg, which is down over 6 kg from admission. She otherwise states she was having some trouble getting off the lower toilet at the hospital, but does not feel like she will have any problems at home. We did recommend a PT assessment prior to discharge and she was agreeable to that. Her Lasix will be changed to Demadex 20 mg twice daily on discharge in hopes this will work a little bit better for her, especially with her history of gastric bypass. It may be that she is just not absorbing the diuretics. Otherwise, no other changes were made. Her INR was therapeutic at 2.4. This was communicated with the INR Clinic and she will follow up with an INR with them as an outpatient. She will also see me in the clinic on 04/12 with lab work, which was previously planned including a ferritin, magnesium, CBC and CMP. Discharge vitals do include a temperature of 98.4, pulse 64, blood pressure 125/63, respiratory rate 20, O2 100 on room air. In general, she is in no acute distress. Her heart is a regular rate and rhythm without murmur. Lung sounds are clear to auscultation bilaterally without crackles or wheezes. Abdomen nondistended. Extremities warm and dry. She has just very trace edema in her ankles. Her taut edema was significantly improved. Her mental status, she is alert and orientated x3. She is not depressed or anxious. Discharging lab work includes a hemoglobin stable at 8.3, white count normal, platelets 262, and creatinine was 1.3, calcium was 7.5. ProBNP was 2945 on admission, which was similar to past proBNP's. MKA: 04/05/2018 12:43:14 MODL: 04/05/2018 14:14:18 /[id number]
[2018-04-05] MEDS ORDERED: Torsemide 20 MG Tab PO SCH (16:00)
== END 2018-04-05 14:25 | disposition home or self-care (01) | DRG 641 ==
LOC: VM.MS 14:35
PROVIDERS: ADMIT Internal Medicine; ATTEND Internal Medicine
DX: E43 Unspecified severe protein-calorie malnutrition (principal); I50.32 Chronic diastolic (congestive) heart failure; I48.1 Persistent atrial fibrillation; E88.09 Other disorders of plasma-protein metabolism, not elsewhere classified; Z95.0 Presence of cardiac pacemaker; Z85.42 Personal history of malignant neoplasm of other parts of uterus; Z90.710 Acquired absence of both cervix and uterus; Z86.14 Personal history of Methicillin resistant Staphylococcus aureus infection; Z79.01 Long term (current) use of anticoagulants; Z98.84 Bariatric surgery status; Z86.718 Personal history of other venous thrombosis and embolism; E03.9 Hypothyroidism, unspecified; E53.8 Deficiency of other specified B group vitamins; E55.9 Vitamin D deficiency, unspecified; F39 Unspecified mood [affective] disorder; D64.9 Anemia, unspecified; G62.9 Polyneuropathy, unspecified; E27.9 Disorder of adrenal gland, unspecified; Z89.429 Acquired absence of other toe(s), unspecified side; Z88.8 Allergy status to other drugs, medicaments and biological substances; Z88.1 Allergy status to other antibiotic agents; Z91.030 Bee allergy status; I95.2 Hypotension due to drugs; T50.2X5A Adverse effect of carbonic-anhydrase inhibitors, benzothiadiazides and other diuretics, initial encounter; E66.9 Obesity, unspecified; Z68.32 Body mass index [BMI] 32.0-32.9, adult; Z79.899 Other long term (current) drug therapy; Z79.2 Long term (current) use of antibiotics; M46.44 Discitis, unspecified, thoracic region; S16.1XXA Strain of muscle, fascia and tendon at neck level, initial encounter; X58.XXXA Exposure to other specified factors, initial encounter
CPT/HCPCS: 36415; 51702; 80048; 80069; 83735; 83880; 85025; 85610; 97161-GP; A9270-GY; J1940; J7050

== ENCOUNTER 2018-08-04 13:20 | Inpatient (IN) | payer MEDICARE, BC ==
[2018-08-04] MEDS ORDERED: Acetaminophen 500 MG Tab PO PRN (15:24)
[2018-08-04] MEDS: Cholestyramine/Aspartame Powder 4 GM Packet PO SCH (17:00)
[2018-08-04] MEDS ORDERED: Cholecalciferol (Vitamin D3) 400 Unit Tab PO SCH (20:00)
[2018-08-04] MEDS ORDERED: Ferrous Sulfate 325 MG Tab PO SCH (20:00)
[2018-08-04] MEDS: Loperamide 2 MG Cap PO SCH (20:15)
[2018-08-04] MEDS: Calcium Carbonate/Vitamin D3 1250 MG-200 Unit Tab PO SCH (20:15)
[2018-08-04] MEDS: THIOCTIC ACID PO SCH (20:29)
--- NOTE | 2018-08-04 22:32 | HP ---
CHIEF COMPLAINT: Deconditioning after an acute stay for orthostatic hypotension due to dehydration from poor oral intake due to Bactrim and chronic diarrhea with intermittent dyspnea felt to be due to deconditioning with some history of chronic diastolic heart failure, but no exacerbation. There was some question of melena, but black stools were found to be due to iron and Hemoccult, confirmed eventually to be negative in [place]. The patient did not require any EGD. She actually had been admitted to our facility on 07/30/2018 and transferred out on 07/31/2018 before being transferred back today. She has chronic atrial fibrillation. Her INR was only 1.2 on admission. She had been placed on Lovenox, and on transfer, they did a heparin drip due to renal failure with creatinine up to 1.7. She did not have any CT scan for PE protocol and her INR eventually came up above 2 and she was therapeutic. She also has significant protein-calorie malnutrition, which is chronic. She has been on protein. She has a history of gastric bypass. She has a very complicated medical history and has had multiple readmissions for edema. She states right now her legs are not very swollen, but her arms are. She did get started on Questran to help with her chronic diarrhea and that has helped somewhat. Her C. diff test was negative. Her hemoglobin did go down to 7.8 yesterday, but it was only 7.9 on transfer, then up to 8.8, and her baseline is around 8.5-9. Her creatinine yesterday was 0.91. She otherwise was also given an iron infusion and was increased on her magnesium. Her past medical history, past social history, past surgical history, past family history were all recently reviewed in her recent H and P by myself on 07/30/2018 and no further updates need to be made. ALLERGIES: Her allergies include honey bee venom, cephalexin, ZO inhibitors. MEDICATIONS: Her medication list from [facility] includes calcium, vitamin D 400 at bedtime. Also, the 50,000 units on Thursday, Thursday, Thursday, and Thursday. Warfarin 1 mg Thursday, Thursday, Thursday, 2 mg all the other days. She did get some 4 mg dosing prior to her transfer and had been on that dose earlier in the summer. She also takes Questran 4 g 3 times a day, magnesium oxide 250 daily, folic acid 1 mg daily, levothyroxine 88 mcg daily, Imodium 4 mg in the morning, 2 mg at bedtime, Aldactone 25 mg daily, furosemide 20 mg daily, acidophilus tab, protein powder 15 g twice daily, Lexapro 20 mg daily, B12, 1000 mcg daily, iron 325 b.i.d., minocycline 100 mg daily for a chronic antibiotic suppression, B12 injections weekly, thiamine, alpha lipoic acid (ALA) 150 b.i.d. for neuropathy. REVIEW OF SYSTEMS: General: The patient just has not had much of an appetite. She had lost some weight prior to this admission. No fever, no chills, but she does feel cold. She still has some lightheadedness upon standing. HEENT: She does have a sore neck, but it is more in the back, not a sore throat area. Comes and goes. It is relieved by Tylenol. Cardiac: No chest pain. No palpitations. Respiratory: She does have intermittent shortness of breath, but no cough. Musculoskeletal: She has had some pain in her hip, just some aches, but it does not seem to be getting worse. GI: As stated in the HPI. Otherwise, all systems reviewed and found to be negative unless otherwise stated. PHYSICAL EXAMINATION: Vital Signs: Shows her to have a weight 217 pounds or 98.4 kg. Actually, on her admission last week when she was dehydrated, her weight was only 89 kg. Temperature 98.7, pulse 85, respiratory rate 16, O2 100% on room air. General: She is in no acute distress. Heart: Irregularly irregular. Lungs: Sounds are clear to auscultation bilaterally without crackles or wheezes. Abdomen: Nondistended, nontender. Extremities: Warm and dry. She has bruising over the right gill. No significant edema to her legs. She did not have any pitting edema on her arms. She does have some minor chronic lymphedema changes and she had actually just completed outpatient occupational therapy for lymphedema. She does have support stockings, but is not currently wearing them. ASSESSMENT: 1. Severe deconditioning in a patient with multiple chronic medical comorbidities with a recent urinary tract infection treated with Bactrim, then some renal failure and dehydration from that. Now, kidney function has resolved. 2. Chronic diarrhea, ruled out for gastrointestinal bleed. 3. Intermittent dyspnea with known history of atrial fibrillation, but pacemaker in place, on warfarin. 4. Moderate protein-calorie malnutrition. 5. History of gastric bypass with B12 and vitamin D deficiency, on supplements. 6. Adjustment disorder, on the Lexapro. PLAN: At this point, the patient will continue PT, OT with [facility]. We will try to get her up and moving around better. Ultimately, she may require a longer skilled stay at the half-way before she is able to return to an assisted living setting. We will monitor her electrolytes and INR closely. We will repeat her INR tomorrow and adjust Coumadin as needed. Otherwise, we will get her using her support stockings and check orthostatic vitals. If needed, we will do some daily weights just to see how things go over the next few days and will continue Questran for the chronic diarrhea. The patient elects to be a code level 3. No CPR. Discussed with her for DVT prophylaxis. She is on Coumadin. MKA: 08/04/2018 15:28:03 MODL: 08/04/2018 22:26:13 /[id number]
[2018-08-05] MEDS: Cholestyramine/Aspartame Powder 4 GM Packet PO SCH ×3 (05:35→17:12)
[2018-08-05] MEDS: Torsemide 20 MG Tab PO SCH (08:09)
[2018-08-05] MEDS: Cyanocobalamin (Vitamin B12) 1,000 MCG Tab PO SCH (08:09)
[2018-08-05] MEDS: Lactobacillus Rhamnosus GG (Probiotic) Cap PO SCH (08:09)
[2018-08-05] MEDS: Levothyroxine 88 MCG Tab PO SCH (08:09)
[2018-08-05] MEDS: Loperamide 2 MG Cap PO SCH ×2 (08:09→19:48)
[2018-08-05] MEDS: Citalopram 20 MG Tab PO SCH (08:09)
[2018-08-05] MEDS: Spironolactone 25 MG Tab PO SCH (08:09)
[2018-08-05] MEDS: Magnesium Oxide 400 MG Tab PO SCH (08:10)
[2018-08-05] MEDS: Ferrous Sulfate 325 MG Tab PO SCH (08:10)
[2018-08-05] MEDS: Folic Acid 1 MG Tab PO SCH (08:10)
[2018-08-05] MEDS: Thiamine 100 MG Tab PO SCH (08:10)
[2018-08-05] MEDS: Calcium Carbonate/Vitamin D3 1250 MG-200 Unit Tab PO SCH ×2 (08:10→19:48)
[2018-08-05] MEDS: MINOCYCLINE 100 MG PO SCH (08:10)
[2018-08-05] MEDS: THIOCTIC ACID PO SCH (08:14)
[2018-08-05] MEDS: Warfarin 2 MG Tab PO SCH (19:47)
[2018-08-06] MEDS: Cholestyramine/Aspartame Powder 4 GM Packet PO SCH ×3 (05:57→17:55)
[2018-08-06] MEDS: Lactobacillus Rhamnosus GG (Probiotic) Cap PO SCH (08:48)
[2018-08-06] MEDS: Cyanocobalamin (Vitamin B12) 1,000 MCG Tab PO SCH (08:48)
[2018-08-06] MEDS: Ferrous Sulfate 325 MG Tab PO SCH (08:49)
[2018-08-06] MEDS: Citalopram 20 MG Tab PO SCH (08:49)
[2018-08-06] MEDS: Ergocalciferol (Vitamin D2) 50,000 Unit Cap PO SCH (08:49)
[2018-08-06] MEDS: Loperamide 2 MG Cap PO SCH ×2 (08:50→20:13)
[2018-08-06] MEDS: Torsemide 20 MG Tab PO SCH (08:50)
[2018-08-06] MEDS: Spironolactone 25 MG Tab PO SCH (08:50)
[2018-08-06] MEDS: Magnesium Oxide 400 MG Tab PO SCH (08:50)
[2018-08-06] MEDS: Folic Acid 1 MG Tab PO SCH (08:51)
[2018-08-06] MEDS: Levothyroxine 88 MCG Tab PO SCH (08:51)
[2018-08-06] MEDS: Calcium Carbonate/Vitamin D3 1250 MG-200 Unit Tab PO SCH ×2 (08:51→20:13)
[2018-08-06] MEDS: Thiamine 100 MG Tab PO SCH (09:01)
[2018-08-06] MEDS ORDERED: Vancomycin 125 MG/2.5 ML Oral Solution 2.5 ML UD Cup PO SCH (10:00)
[2018-08-06] MEDS: MINOCYCLINE 100 MG PO SCH ×3 (10:37→20:13)
[2018-08-06] MEDS: Vancomycin 125 MG/2.5 ML Oral Solution 2.5 ML UD Cup PO SCH ×2 (10:45→22:55)
[2018-08-06] MEDS: Ciprofloxacin 250 MG Tab PO SCH ×2 (10:45→20:13)
[2018-08-06] MEDS: Acetaminophen 325 MG Tab PO SCH ×2 (11:24→20:13)
--- NOTE | 2018-08-06 18:33 | PN ---
Progress Note for MILANA JOHNSON Date: 08/06/2018 Room #: VM.219 HISTORY OF PRESENT ILLNESS: This is a 77-year-old on swing bed since 08/04 after an acute stay down in [place] for acute renal failure, concern for GI bleeding, and pulmonary embolism. She did not receive any scope. She did get her INR up to therapeutic at 2.0. Discharging hemoglobin was 7.8 and 7.9. Hemoglobin was checked yesterday and was stable. This was done because she was still severely weak, very difficult to get out of bed. She has pain all over her body. In the past, she did take Lyrica but was taken off due to swelling. Last evening, the nurse noted "a boil" down in her coccyx area. The patient reported this to me, it was draining, and also, she had some urinary retention yesterday 600 mL, so a Ying was placed. She has not had any trouble breathing, but she has had a lot of swelling and drainage from her arms, especially the right arm. She is at the point where she states "I am even considering hospice." The patient has a longstanding history of malnutrition. She has had previous gastric bypass and workup for urinary causes of protein loss have taken place previously. She has been on protein powder. She is eating up to 100% of her meals. She has been afebrile. OBJECTIVE: Vital Signs: Her temperature is 99, pulse 68, blood pressure 91/54, respiratory rate 20, and O2 98% on room air. General: She is in no acute distress. Heart: Regular rate and rhythm. Lungs: Lung sounds are clear to auscultation bilaterally without crackles or wheezes. Extremities: Right arm has swelling, redness, and warmth to the forearm. There is a sore noted but no drainage from it. Her legs are mildly red bilaterally, but no significant warmth. There are lymphedema changes. Her coccyx area is examined. There is an ulcer wound noted that is freely draining fluid, probe for 1.8 cm. It is tender to palpation. There is just minimal redness. Neurologic: Otherwise, mental status, she is alert and orientated x3. Her son was present for her exam except for the coccyx ulcer. LABORATORY DATA: Lab work reviewed from yesterday did show white count of 12.8, it was 10 on [place] discharge, hemoglobin stable at 8.1, platelets 248. INR was 2. Sodium 131, potassium 4.6, chloride 104, bicarb 23, BUN 25, creatinine 1.5, glucose 117, calcium 7.7, magnesium 1.8, and albumin 1.3. ASSESSMENT AND PLAN: 1. Coccyx abscess. Concern of course would be for Staph with history of methicillin-resistant Staphylococcus aureus and already on minocycline. Discussed that we will increase that to twice daily as she was quite ill from Bactrim. We will follow this closely. I think this will resolve just with some packing with iodoform change daily. Culture was sent. We will also put her on oral Cipro. This should cover for her right arm cellulitis as well. 2. Urinary retention. Ying will stay in place for the next couple days until she is moving better. 3. Previous history of vertebral osteomyelitis. She has pain all over her body, so I do not think this is a recurrence of that. She has been afebrile. I am going to check an inflammatory marker tomorrow. 4. 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 We discussed that she would continue with therapy and see how things go over the next few days. I told her I honestly did not feel she was at the point of hospice yet. I would like to see her try to get stronger as she was ambulatory and living independently at assisted living just 1 week ago. She is on an SSRI we will continue. 5. Chronic atrial fibrillation. She is on Coumadin. She is therapeutic. We will check an INR tomorrow. 6. Chronic diastolic heart failure, stable without exacerbation. She is on Aldactone and Demadex but due to her renal insufficiency I will hold. 7. Generalized weakness and deconditioning. Did discuss indications for transfusion would be if she has orthostatic hypotension and continued weakness or if hemoglobin went below 7. 8. Chronic anemia 9. Acute on chronic renal failure push fluid and hold diuretics. PLAN: Patient will continue swing bed cares. We will continue working with therapies. We will schedule some Tylenol for pain control. We will do lab work in the morning with INR and inflammatory markers in addition to white count and kidney function. Her creatinine was 1.5 yesterday, discharging creatinine from [place] was 0.9, but had been 1.7 a week ago, so we will continue to push fluids and hold diuretics. I think she was not drinking well and had the urinary retention, so I expect the kidney function to improve now with the Ying in place. MKA: 08/06/2018 17:22:04 MODL: 08/06/2018 18:05:00 /[id number]
[2018-08-07] MEDS: Acetaminophen 325 MG Tab PO SCH ×4 (02:55→20:52)
[2018-08-07] MEDS: Cholestyramine/Aspartame Powder 4 GM Packet PO SCH ×3 (06:48→18:24)
[2018-08-07] MEDS: Lactobacillus Rhamnosus GG (Probiotic) Cap PO SCH (07:59)
[2018-08-07] MEDS: Cyanocobalamin (Vitamin B12) 1,000 MCG Tab PO SCH (07:59)
[2018-08-07] MEDS: Magnesium Oxide 400 MG Tab PO SCH (07:59)
[2018-08-07] MEDS: Levothyroxine 88 MCG Tab PO SCH (07:59)
[2018-08-07] MEDS: Loperamide 2 MG Cap PO SCH ×2 (07:59→20:53)
[2018-08-07] MEDS: Calcium Carbonate/Vitamin D3 1250 MG-200 Unit Tab PO SCH ×2 (07:59→20:53)
[2018-08-07] MEDS: Citalopram 20 MG Tab PO SCH (07:59)
[2018-08-07] MEDS: Ciprofloxacin 250 MG Tab PO SCH (07:59)
[2018-08-07] MEDS: Ferrous Sulfate 325 MG Tab PO SCH (08:00)
[2018-08-07] MEDS: Thiamine 100 MG Tab PO SCH (08:00)
[2018-08-07] MEDS: Folic Acid 1 MG Tab PO SCH (08:00)
[2018-08-07] MEDS: MINOCYCLINE 100 MG PO SCH (08:00)
[2018-08-07 08:01] LABS: ANION GAP 7.8 mmol/L (10-20)
[2018-08-07] MEDS: Vancomycin 125 MG/2.5 ML Oral Solution 2.5 ML UD Cup PO SCH (11:01)
[2018-08-07] MEDS: Ondansetron 4 MG Tab.DIS PO PRN (16:19)
[2018-08-07] MEDS: Dextrose 5%-0.9% NaCl 1,000 ML IV SCH (16:36)
[2018-08-07] MEDS: Warfarin 2 MG Tab PO SCH (20:53)
[2018-08-08] MEDS: Ondansetron 4 MG Tab.DIS PO PRN ×3 (02:16→22:53)
[2018-08-08] MEDS: Cholestyramine/Aspartame Powder 4 GM Packet PO SCH ×3 (06:08→17:54)
[2018-08-08] MEDS: MINOCYCLINE 100 MG PO SCH (07:59)
[2018-08-08] MEDS: Ciprofloxacin 250 MG Tab PO SCH ×2 (08:00→19:33)
[2018-08-08] MEDS: Acetaminophen 325 MG Tab PO SCH ×3 (08:00→19:36)
[2018-08-08] MEDS: Citalopram 20 MG Tab PO SCH (08:00)
[2018-08-08] MEDS: Calcium Carbonate/Vitamin D3 1250 MG-200 Unit Tab PO SCH ×2 (08:00→22:26)
[2018-08-08] MEDS: Folic Acid 1 MG Tab PO SCH (08:00)
[2018-08-08] MEDS: Ferrous Sulfate 325 MG Tab PO SCH (08:00)
[2018-08-08] MEDS: Thiamine 100 MG Tab PO SCH (08:00)
[2018-08-08] MEDS: Cyanocobalamin (Vitamin B12) 1,000 MCG Tab PO SCH (08:01)
[2018-08-08] MEDS: Loperamide 2 MG Cap PO SCH (08:01)
[2018-08-08] MEDS: Lactobacillus Rhamnosus GG (Probiotic) Cap PO SCH (08:01)
[2018-08-08] MEDS: Levothyroxine 88 MCG Tab PO SCH (08:01)
[2018-08-08] MEDS: Magnesium Oxide 400 MG Tab PO SCH (08:01)
--- NOTE | 2018-08-08 10:57 | PCM.SN ---
- Free Text/Narrative Note: Pt had several emesis yesterday w/o abdominal pain. She was placed on IV and given Zofran, Minocycline, vancomycina nd cipro were hel for one dose. She was given her antibiotics this AM and so far has tolerated them. She has loss of appetite Culture from coccyx is gowing gr neg rods IMP : probable nausea from meds, possibly cipro Plan continue Zofran prn, continue cipro until cultures are back, contnue iv for another 24 hours L
[2018-08-08] MEDS: Vancomycin 125 MG/2.5 ML Oral Solution 2.5 ML UD Cup PO SCH ×2 (11:26→23:27)
[2018-08-08] MEDS: Dextrose 5%-0.9% NaCl 1,000 ML IV SCH (15:34)
[2018-08-08] MEDS: Warfarin 2 MG Tab PO SCH (19:35)
[2018-08-09] MEDS: MINOCYCLINE 100 MG PO SCH ×2 (01:32→07:52)
[2018-08-09] MEDS: Loperamide 2 MG Cap PO SCH ×3 (01:32→20:34)
[2018-08-09] MEDS: Acetaminophen 325 MG Tab PO SCH ×4 (01:34→20:35)
[2018-08-09] MEDS: Ciprofloxacin 250 MG Tab PO SCH ×2 (01:35→07:51)
[2018-08-09] MEDS: Warfarin 2 MG Tab PO SCH (01:36)
[2018-08-09] MEDS: Ondansetron 4 MG Tab.DIS PO PRN ×2 (07:12→17:51)
[2018-08-09] MEDS: Lactobacillus Rhamnosus GG (Probiotic) Cap PO SCH (07:51)
[2018-08-09] MEDS: Levothyroxine 88 MCG Tab PO SCH (07:51)
[2018-08-09] MEDS: Ferrous Sulfate 325 MG Tab PO SCH (07:51)
[2018-08-09] MEDS: Citalopram 20 MG Tab PO SCH (07:51)
[2018-08-09] MEDS: Folic Acid 1 MG Tab PO SCH (07:51)
[2018-08-09] MEDS: Thiamine 100 MG Tab PO SCH (07:52)
[2018-08-09] MEDS: Magnesium Oxide 400 MG Tab PO SCH (07:52)
[2018-08-09] MEDS: Cyanocobalamin (Vitamin B12) 1,000 MCG Tab PO SCH (07:52)
[2018-08-09] MEDS: Ergocalciferol (Vitamin D2) 50,000 Unit Cap PO SCH (07:52)
[2018-08-09] MEDS: Calcium Carbonate/Vitamin D3 1250 MG-200 Unit Tab PO SCH ×2 (07:52→20:34)
[2018-08-09] MEDS ORDERED: Amoxicillin/Clavulanate K 500-125 MG Tab PO SCH (08:30)
[2018-08-09] MEDS ORDERED: Cyanocobalamin (Vitamin B12) 1,000 MCG/ML SDV SUBCUT SCH (09:00)
--- NOTE | 2018-08-09 09:12 | PN ---
Progress Note for MILANA JOHNSON Date: 08/09/2018 Room #: VM.219 SUBJECTIVE: This is a 77-year-old on swing bed for deconditioning after an acute stay for acute renal failure in [place]. The patient had poor oral intake over the weekend. She was very nauseated and did vomit. Suspected that it was due to the Cipro antibiotics. So far, she is doing okay today. She does have a history of chronic diarrhea and previous gastric bypass with severe malnutrition. She has been afebrile. She was noted to have a coccyx abscess on Thursday, which was draining that is why the Cipro was started and minocycline increased. She has been afebrile. White count did normalize. Creatinine remained stable at 1.5. She was given 1 L of IV fluids over the weekend. Her swelling actually overall has improved. She is not having any significant shortness of breath. She is eating 50% to 100% of her meals and fluid balance has remained rather stable as she was down to 0.2 L and then up to 0.2 L the next day with the fluids. OBJECTIVE: Vital Signs: Her temperature 98.6, weight 94.8 kg, pulse 78, blood pressure 138/62, respiratory rate 18 and O2 of 97% on room air. General: She is in no acute distress. Heart: Regular rate and rhythm. Lungs: Sounds are clear to auscultation bilaterally without crackles or wheezes. Abdomen: Has positive bowel sounds. Soft and nontender. There is a couple small 1 cm nodules noted in the periumbilical area. Extremities: Warm and dry. Little bit of redness to her legs, but no warmth. She has 1+ edema even some trace edema to the thigh. The right arm redness and swelling are improving. Mental Status: She is alert and orientated x3. ASSESSMENT AND PLAN: 1. Coccyx abscess with Escherichia coli and Klebsiella. We will switch the Cipro to Augmentin. We will plan to complete a 1 week course on Thursday. 2. Right arm cellulitis. Augmentin should cover that as well. 3. Severe deconditioning. She is working with therapies. 4. Urinary retention due to the coccyx wound. We will continue with the Ying and do a voiding trial likely in a couple days when she is moving better. 5. History of vertebral osteomyelitis. She is on chronic minocycline. We will decrease that back to once daily. 6. Mood disorder related to her illness. She is on Lexapro. 7. Chronic atrial fibrillation. She is on Coumadin. We will repeat INR tomorrow. 8. Chronic diastolic heart failure, stable without exacerbation. Her Demadex and Aldactone have actually been on hold due to renal insufficiency. Blood pressures are going up. We will review labs and possibly restart tomorrow. 9. Chronic anemia. We will restart her B12 shots. 10.Acute on chronic renal failure. We will repeat labs tomorrow. 11.The plan at this point, the patient will continue swing bed cares. She will continue working with therapies. Pain seems to be under better control with the Tylenol and expect a prolonged swing bed stay. EZA: 08/09/2018 08:50:11 MODL: 08/09/2018 09:06:28 /[id number]
[2018-08-09] MEDS: Vancomycin 125 MG/2.5 ML Oral Solution 2.5 ML UD Cup PO SCH ×2 (10:40→18:32)
[2018-08-09] MEDS: Amoxicillin/Clavulanate K 500-125 MG Tab PO SCH ×2 (10:40→18:31)
[2018-08-09] MEDS: Prochlorperazine 5 MG Tab PO PRN (19:19)
[2018-08-10] MEDS: Cholestyramine/Aspartame Powder 4 GM Packet PO SCH ×3 (06:28→17:56)
[2018-08-10] MEDS: Torsemide 20 MG Tab PO SCH (08:30)
[2018-08-10] MEDS: Lactobacillus Rhamnosus GG (Probiotic) Cap PO SCH (08:30)
[2018-08-10] MEDS: Ergocalciferol (Vitamin D2) 50,000 Unit Cap PO SCH (08:31)
[2018-08-10] MEDS: Folic Acid 1 MG Tab PO SCH (08:31)
[2018-08-10] MEDS: Amoxicillin/Clavulanate K 500-125 MG Tab PO SCH ×2 (08:32→17:56)
[2018-08-10] MEDS: Calcium Carbonate/Vitamin D3 1250 MG-200 Unit Tab PO SCH ×2 (08:32→19:40)
[2018-08-10] MEDS: Cyanocobalamin (Vitamin B12) 1,000 MCG Tab PO SCH (08:32)
[2018-08-10] MEDS: Acetaminophen 325 MG Tab PO SCH ×3 (08:33→19:40)
[2018-08-10] MEDS: Levothyroxine 88 MCG Tab PO SCH (08:33)
[2018-08-10] MEDS: Ferrous Sulfate 325 MG Tab PO SCH (08:33)
[2018-08-10] MEDS: Spironolactone 25 MG Tab PO SCH (08:35)
[2018-08-10] MEDS: Thiamine 100 MG Tab PO SCH (08:35)
[2018-08-10] MEDS: Vancomycin 125 MG/2.5 ML Oral Solution 2.5 ML UD Cup PO SCH ×2 (08:36→17:56)
[2018-08-10] MEDS: Magnesium Oxide 400 MG Tab PO SCH (08:36)
[2018-08-10] MEDS: MINOCYCLINE 100 MG PO SCH (08:40)
[2018-08-10] MEDS: Citalopram 20 MG Tab PO SCH (08:41)
[2018-08-10] MEDS: Loperamide 2 MG Cap PO SCH ×2 (08:41→19:40)
[2018-08-10] MEDS: Ondansetron 4 MG Tab.DIS PO PRN (19:39)
[2018-08-11] MEDS: Ondansetron 4 MG Tab.DIS PO PRN ×2 (04:20→16:58)
[2018-08-11] MEDS: Cholestyramine/Aspartame Powder 4 GM Packet PO SCH ×3 (06:41→17:08)
[2018-08-11] MEDS: Prochlorperazine 5 MG Tab PO PRN (07:26)
[2018-08-11] MEDS: Vancomycin 125 MG/2.5 ML Oral Solution 2.5 ML UD Cup PO SCH ×2 (08:24→17:07)
[2018-08-11] MEDS: Spironolactone 25 MG Tab PO SCH (08:25)
[2018-08-11] MEDS: Ferrous Sulfate 325 MG Tab PO SCH (08:25)
[2018-08-11] MEDS: Ergocalciferol (Vitamin D2) 50,000 Unit Cap PO SCH (08:25)
[2018-08-11] MEDS: Folic Acid 1 MG Tab PO SCH (08:25)
[2018-08-11] MEDS: Torsemide 20 MG Tab PO SCH (08:25)
[2018-08-11] MEDS: Lactobacillus Rhamnosus GG (Probiotic) Cap PO SCH (08:26)
[2018-08-11] MEDS: Cyanocobalamin (Vitamin B12) 1,000 MCG Tab PO SCH (08:26)
[2018-08-11] MEDS: Amoxicillin/Clavulanate K 500-125 MG Tab PO SCH ×2 (08:26→18:11)
[2018-08-11] MEDS: Acetaminophen 325 MG Tab PO SCH ×3 (08:26→19:37)
[2018-08-11] MEDS: Magnesium Oxide 400 MG Tab PO SCH (08:27)
[2018-08-11] MEDS: Calcium Carbonate/Vitamin D3 1250 MG-200 Unit Tab PO SCH ×2 (08:27→19:37)
[2018-08-11] MEDS: Thiamine 100 MG Tab PO SCH (08:27)
[2018-08-11] MEDS: Citalopram 20 MG Tab PO SCH (08:27)
[2018-08-11] MEDS: Levothyroxine 88 MCG Tab PO SCH (08:27)
[2018-08-11] MEDS: Loperamide 2 MG Cap PO SCH ×2 (08:27→19:38)
[2018-08-11] MEDS: MINOCYCLINE 100 MG PO SCH (08:28)
[2018-08-11] MEDS ORDERED: Metoclopramide 10 MG/2 ML SDV IVPUSH PRN (08:34)
[2018-08-11] MEDS: Metoclopramide 5 MG Tab PO SCH ×3 (09:06→16:19)
--- NOTE | 2018-08-11 09:10 | PN ---
Progress Note for MILANA JOHNSON Date: 08/11/2018 Room #: VM.219 SUBJECTIVE: This is a 77-year-old on swing bed after an acute stay for dehydration and renal failure. She has been back on her diuretics since yesterday. She admits she is a little bit more short of breath, but her biggest concern is ongoing nausea. She had 4 bowel movements prior to yesterday, but none yesterday. She is not passing that much gas, but she is burping a lot. She is getting Zofran. She does have significant history of previous abdominal surgeries including hysterectomy and gastric bypass. Lab work yesterday showed a normal white count. She does have a coccyx abscess, which is tunneling deeper from around 2 cm on presentation to 5 cm now. Dressing was just changed by nursing. They are doing at least once daily and packing, sometimes even twice daily. She has been afebrile. OBJECTIVE: Vital Signs: Her temperature is 98.1, pulse 82, blood pressure 128/62, respiratory rate 20, and O2 95% on room air. Weight 99.7 kg. General: She is in no acute distress. Heart: Regular rate and rhythm. Lungs: Sounds are clear to auscultation bilaterally without crackles or wheezes. Abdomen: Has decreased bowel sounds. Mildly distended. Mildly tender. She does have a few nodules palpated periumbilically. Extremities: Warm and dry. Little bit of redness to that right leg and some bruising, but no warmth, just trace edema. She has still 1+ edema over the right arm, but the redness and warmth is gone. Mental Status: She is alert and orientated x3. Psych: She does appear depressed. ASSESSMENT: 1. Coccyx abscess with Escherichia coli and Klebsiella. Stop date of Augmentin is Thursday. 2. Right arm cellulitis, improving. 3. Severe deconditioning. She is working with therapies. 4. Urinary retention and incontinence with a coccyx wound. We will continue Ying for wound healing. 5. History of vertebral osteomyelitis. She is on chronic minocycline. 6. Mood disorder, on Lexapro. 7. Chronic atrial fibrillation on Coumadin with therapeutic INR. 8. Chronic diastolic heart failure, stable without exacerbation. She is on her home diuretics. 9. Renal insufficiency, improving. We will repeat creatinine tomorrow. 10.Chronic anemia. She is on B12. Hemoglobins have been stable. 11.Severe malnutrition. She is on protein supplements. Dietary is involved. PLAN: The patient will continue on swing bed cares for wound cares, as well as physical and occupational therapies. MKA: 08/11/2018 08:40:35 MODL: 08/11/2018 09:00:33 /[id number]
[2018-08-11 11:48] LABS: ANION GAP 10.5 mmol/L (10-20)
[2018-08-11] MEDS ORDERED: Iopamidol 612 MG/ML 100 ML Bottle IVPUSH ONE (14:26)
[2018-08-12] MEDS: Ondansetron 4 MG Tab.DIS PO PRN ×2 (02:18→13:50)
[2018-08-12] MEDS: Cholestyramine/Aspartame Powder 4 GM Packet PO SCH (05:21)
[2018-08-12] MEDS: Metoclopramide 5 MG Tab PO SCH ×3 (06:07→17:45)
[2018-08-12 07:36] LABS: ANION GAP 12.6 mmol/L (10-20)
[2018-08-12] MEDS ORDERED: Cholestyramine/Aspartame Powder 4 GM Packet PO PRN (08:48)
[2018-08-12] MEDS: Cyanocobalamin (Vitamin B12) 1,000 MCG Tab PO SCH (08:51)
[2018-08-12] MEDS: Ferrous Sulfate 325 MG Tab PO SCH (08:51)
[2018-08-12] MEDS: Thiamine 100 MG Tab PO SCH (08:51)
[2018-08-12] MEDS: Calcium Carbonate/Vitamin D3 1250 MG-200 Unit Tab PO SCH (08:51)
[2018-08-12] MEDS: MINOCYCLINE 100 MG PO SCH (08:56)
[2018-08-12] MEDS: Torsemide 20 MG Tab PO SCH (08:57)
[2018-08-12] MEDS: Amoxicillin/Clavulanate K 500-125 MG Tab PO SCH ×2 (08:57→17:47)
[2018-08-12] MEDS: Acetaminophen 325 MG Tab PO SCH ×3 (08:57→19:30)
[2018-08-12] MEDS: Citalopram 20 MG Tab PO SCH (08:57)
[2018-08-12] MEDS: Loperamide 2 MG Cap PO SCH ×2 (08:57→19:31)
[2018-08-12] MEDS: Folic Acid 1 MG Tab PO SCH (08:57)
[2018-08-12] MEDS: Spironolactone 25 MG Tab PO SCH (08:57)
[2018-08-12] MEDS: Magnesium Oxide 400 MG Tab PO SCH (08:57)
[2018-08-12] MEDS: Levothyroxine 88 MCG Tab PO SCH (08:58)
[2018-08-12] MEDS: Vancomycin 125 MG/2.5 ML Oral Solution 2.5 ML UD Cup PO SCH ×2 (09:05→17:47)
[2018-08-12] MEDS ORDERED: Lactobacillus Rhamnosus GG (Probiotic) Cap PO SCH (12:00)
[2018-08-12] MEDS ORDERED: 50% Dextrose in Water 50 ML Syringe ONE (17:23)
[2018-08-12] MEDS: Warfarin 2 MG Tab PO SCH (19:30)
--- NOTE | 2018-08-12 22:10 | PCM.SN ---
- Free Text/Narrative Note: 77 yo seen today after finishing with PT to discuss the CT scan she had yesterday which showed right hydronephrosis with unknown cause, ascites, anasarca, and pleural effusions. no liver lesions, distended stomach and enteritis changes with small bowel obstruction. Patient has been NPO overnight and was feeling better wanting to eat today so was put on clear liquids and then had 1500 ml of brown emesis so was NPO again and her coccyx abscess now tunnels to 6 cm per the nurse. She had a blood sugar check of 34 and is not on insulin or diabetes meds. She has a hx of gastric bypass. I gave her 1 amp or 25 grams of D50 so plan to monitor accuchecks at least QID. Still on Augmentin for her wound last day tomorrow, no fevers, labs stable and Alk phos improved with GGT pending Impression: Hypoglycemia like related to gastric bypass will give D50 and glucose if able to take PO Small bowel obstruction if active vomiting will place NG Hydronephrosis Discussed with radiology likel we will do a CT ureterogram Anasarca and severe malnutrition long standing continue protein supplements as tolerated Enteritis etiology unclear Renal insufficiency Atrial fib on coumadin CHF on diuretics Remote hx of Endometrial cancer Lymphedema Chronic anemia and B12 deficiency Hypomagnesemia Urinary retention gutiérrez in place Coccyx wound due to abscess not a pressure ulcer
[2018-08-13] MEDS: Metoclopramide 5 MG Tab PO SCH ×3 (06:05→17:34)
[2018-08-13] MEDS ORDERED: Fluconazole 100 MG Tab PO ONE (08:37)
[2018-08-13] MEDS: Ergocalciferol (Vitamin D2) 50,000 Unit Cap PO SCH (08:43)
[2018-08-13] MEDS: Spironolactone 25 MG Tab PO SCH (08:43)
[2018-08-13] MEDS: Levothyroxine 88 MCG Tab PO SCH (08:43)
[2018-08-13] MEDS: Loperamide 2 MG Cap PO SCH ×3 (08:43→20:01)
[2018-08-13] MEDS: Citalopram 20 MG Tab PO SCH (08:43)
[2018-08-13] MEDS: Acetaminophen 325 MG Tab PO SCH ×3 (08:43→20:01)
[2018-08-13] MEDS: Folic Acid 1 MG Tab PO SCH (08:43)
[2018-08-13] MEDS: Magnesium Oxide 400 MG Tab PO SCH (08:43)
[2018-08-13] MEDS: Torsemide 20 MG Tab PO SCH (08:43)
[2018-08-13] MEDS: MINOCYCLINE 100 MG PO SCH (08:44)
[2018-08-13] MEDS: Amoxicillin/Clavulanate K 500-125 MG Tab PO SCH (08:49)
[2018-08-13] MEDS: Vancomycin 125 MG/2.5 ML Oral Solution 2.5 ML UD Cup PO SCH (08:49)
[2018-08-13] MEDS ORDERED: 50% Dextrose in Water 50 ML Syringe IV STA (11:27)
[2018-08-13] MEDS: Ondansetron 4 MG Tab.DIS PO PRN (19:20)
[2018-08-14] MEDS: Metoclopramide 5 MG Tab PO SCH ×3 (06:34→17:13)
[2018-08-14] MEDS: Loperamide 2 MG Cap PO SCH ×2 (08:43→20:11)
[2018-08-14] MEDS: Folic Acid 1 MG Tab PO SCH (08:43)
[2018-08-14] MEDS: Acetaminophen 325 MG Tab PO SCH ×3 (08:44→20:11)
[2018-08-14] MEDS: Levothyroxine 88 MCG Tab PO SCH (08:44)
[2018-08-14] MEDS: Spironolactone 25 MG Tab PO SCH (08:44)
[2018-08-14] MEDS: Torsemide 20 MG Tab PO SCH (08:44)
[2018-08-14] MEDS: MINOCYCLINE 100 MG PO SCH (08:45)
[2018-08-14] MEDS: Citalopram 20 MG Tab PO SCH (08:45)
[2018-08-14] MEDS: Magnesium Oxide 400 MG Tab PO SCH (08:45)
[2018-08-14] MEDS: Ondansetron 4 MG Tab.DIS PO PRN ×2 (11:29→18:11)
[2018-08-14] MEDS: Warfarin 2 MG Tab PO SCH (20:11)
[2018-08-15] MEDS: Metoclopramide 5 MG Tab PO SCH ×3 (06:43→16:11)
[2018-08-15] MEDS: Spironolactone 25 MG Tab PO SCH (08:29)
[2018-08-15] MEDS: Levothyroxine 88 MCG Tab PO SCH (08:29)
[2018-08-15] MEDS: Citalopram 20 MG Tab PO SCH (08:29)
[2018-08-15] MEDS: Loperamide 2 MG Cap PO SCH ×2 (08:29→19:35)
[2018-08-15] MEDS: Torsemide 20 MG Tab PO SCH (08:30)
[2018-08-15] MEDS: Magnesium Oxide 400 MG Tab PO SCH (08:30)
[2018-08-15] MEDS: Folic Acid 1 MG Tab PO SCH (08:30)
[2018-08-15] MEDS: Acetaminophen 325 MG Tab PO SCH ×3 (08:30→19:35)
[2018-08-15] MEDS: MINOCYCLINE 100 MG PO SCH (08:31)
[2018-08-15] MEDS: Ondansetron 4 MG Tab.DIS PO PRN (16:11)
[2018-08-15] MEDS: Prochlorperazine 5 MG Tab PO PRN (19:34)
[2018-08-15] MEDS: Warfarin 2 MG Tab PO SCH (19:35)
[2018-08-16] MEDS: Metoclopramide 5 MG Tab PO SCH ×2 (06:44→12:12)
--- NOTE | 2018-08-16 09:08 | PN ---
Progress Note for MILANA JOHNSON Date: 08/13/2018 Room #: VM.219 HISTORY OF PRESENT ILLNESS: This is a 77-year-old on swing bed since 08/04/2018 for severe deconditioning after a stay for acute renal failure with dehydration and concern for GI bleeding. She went to [place], but did not have any scopes. She does not have any further dark stools. She has had continued problems with nausea and even vomiting. She is not having any stomach pain now, but yesterday was vomited 1500 mL and was discovered to have a low blood pressure of 34. She does have a previous gastric bypass. CT had been done and showed her to also have some right enteritis. She has been on Augmentin now for 1-week for a coccyx abscess which has increased with tunneling, however, she has been afebrile. The drainage has been only bloody. She has normal white count. She also had some hydronephrosis and she has urinary retention, so a Ying is in place. OBJECTIVE: Vital Signs: Temperature 98, pulse 60, blood pressure 101/57, respiratory rate 18 and O2 of 95% on room air. Her weight is 97.2 kg. General: She is in no acute distress. Heart: Regular rate and rhythm. Lungs: Sounds are clear to auscultation bilaterally without crackles or wheezes. Abdomen: Nondistended, not overly tender. Extremities: Warm and dry. She has just trace edema to her legs. The coccyx wound is examined. Edges are clean and not red or warmth. It tunnels to about 5.5 cm toward the rectum. LABORATORY DATA: We will do the white count from today shows her to have 5.8, hemoglobin up to 9, and platelets 296. ASSESSMENT: 1. Hypoglycemia with history of gastric bypass. She is now over 50. She is not overly symptomatic. We will encourage p.o. intake. We will give her an amp of D50 if needed. However, I would stay way from D5 due to her pleural effusions and anasarca. 2. Right arm cellulitis, completing her week of Augmentin today. 3. Severe deconditioning. She is working with therapies. 4. Urinary retention. We will keep the Ying in place, especially due to incontinence and skin breakdown that she has noted. 5. Vertebral osteomyelitis. She is on chronic minocycline. 6. Mood disorder, on Lexapro. 7. Groin redness could just be from her drainage. However, given her chronic antibiotic use, I will give her some oral Diflucan to treat any Brenda. 8. Chronic atrial fibrillation on Coumadin. We will repeat an INR on Thursday. 9. Chronic diastolic heart failure stable without exacerbation. She is on her home diuretics. 10.Renal insufficiency. We will repeat renal function on Thursday. 11.Severe malnutrition. 12.Chronic anemia. 13.Right hydronephrosis. Discussed with patient. She is not interested in any transfer to [place]. She does not want any aggressive life supporting measures, but would consider procedures or surgeries if clinically indicated. 14.Enteritis. We will put her on a gluten free diet. We will continue to have Nutrition follow with her. PLAN: The patient will continue on swing bed cares for wound cares and therapies. Anticipate a prolonged stay. MKA: 08/13/2018 08:37:16 MODL: 08/13/2018 09:00:26 /[id number]
[2018-08-16] MEDS: Levothyroxine 88 MCG Tab PO SCH (09:18)
[2018-08-16] MEDS: Torsemide 20 MG Tab PO SCH (09:18)
[2018-08-16] MEDS: Citalopram 20 MG Tab PO SCH (09:19)
[2018-08-16] MEDS: Acetaminophen 325 MG Tab PO SCH ×2 (09:19→12:12)
[2018-08-16] MEDS: Spironolactone 25 MG Tab PO SCH (09:19)
[2018-08-16] MEDS: Folic Acid 1 MG Tab PO SCH (09:19)
[2018-08-16] MEDS: Ergocalciferol (Vitamin D2) 50,000 Unit Cap PO SCH (09:19)
[2018-08-16] MEDS: Magnesium Oxide 400 MG Tab PO SCH (09:19)
[2018-08-16] MEDS: Loperamide 2 MG Cap PO SCH (09:19)
[2018-08-16] MEDS: Prochlorperazine 5 MG Tab PO PRN (09:20)
[2018-08-16] MEDS: MINOCYCLINE 100 MG PO SCH (09:21)
[2018-08-16 09:31] LABS: ANION GAP 10.4 mmol/L (10-20)
[2018-08-16 16:25] VITALS: BP 117/67
--- NOTE | 2018-08-17 00:02 | DISCH ---
PRIMARY DISCHARGE DIAGNOSES: 1. Coccyx abscess with E. coli and Klebsiella, treated with 1 week of Bactrim. No fevers, normal white count, but continued drainage of mostly bloody material tunneling over 5 cm now. No incision and drainage were performed as it was actively draining on its own. 2. Right hydroureteronephrosis of uncertain etiology with worsening kidney function. She needs a ureteroscopy and possible stents through Urology at some point. 3. Acute renal failure, probably due to poor oral intake, and intravascular volume depletion. Creatinine up to 1.7 on discharge and it was 0.9 on transfer from [place]. 4. Severe protein-calorie malnutrition with remote history of gastric bypass. Her albumin was 1.4 on discharge. 5. Recurrent hypoglycemia, many blood sugars less than 70, including one of 34, which was symptomatic, unclear etiology, but possibly due to poor oral intake and gastric bypass. 6. Small bowel obstruction, ongoing. The patient had a CT on the 08/11/2018. She is doing some intake, has not vomited for over 24 hours. No NG tube was placed. She is having bowel movements. 7. Generalized anasarca with pleural effusions and ascites. This is longstanding problem for her. She has had diastolic heart failure and previous diuresis for the same. She has been on her diuretics, but had been held initially due to dehydration. 8. Remote history of uterine cancer, status post surgery. 9. Obesity. 10.Right arm cellulitis, treated with the Augmentin. 11.Urinary retention, Ying in place; also, due to some incontinence and skin breakdown, the Ying was continued. 12.Remote history of vertebral osteomyelitis on chronic minocycline. 13.Enteritis of the bowel, seen on CT, unknown etiology. 14.Mood disorder, on Lexapro. 15.Chronic atrial fibrillation, on Coumadin with slightly supratherapeutic INR of 4.4 on discharge. 16.Chronic anemia, baseline hemoglobin is between 8 and 9, hemoglobin was 8.8 on discharge. 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 18.History of pacemaker. 19.History of urinary tract infection, earlier in July had E. coli and Proteus, was given Bactrim, but she became ill after that. 20.Remote history of right adrenal mass based on CTs back in 2014. No reported worsening on her recent CT. REASON FOR ADMISSION: On the date of admission, this 77-year-old who is well- known to us from previous acute stay was transferred from [place]. After a transfer there due to dehydration, concern for pulmonary embolism and GI bleeding, she was given some fluid, and her hemoglobin went down to 7.9. She did not receive any scopes or any CT scans while in [place]. She was ruled out with a negative C. diff test and she had over 20 years of diarrhea. She was started on Questran, however, that was discontinued to be just p.r.n. due to her recurrent nausea. She also received some IV iron while she was there. She had some intermittent dyspnea during her stay. She denied any increased shortness of breath while she was here. She did have some orthostatic drops in blood pressure and normally runs lower blood pressure around 100. She was on magnesium supplements and it may be was contributing to her loose stools while loose stools have definitely been better here. Otherwise, the patient did continue work with therapy, she was mainly sitting up to the edge of the bed, she was not able to do some ambulation as she just did not feel well. We did wound cares with wound packing by nurses. We completed antibiotics with Augmentin. We monitored lab work and things remained stable other than her creatinine had gradually increased up to 1.5 and now 1.7 today. She had LFTs showing an alk phos of over 500 and bilirubin was normal, AST was normal at 26, ALT 72, but those are even coming down today back to normal, but the alk phos was 269. We had her on protein powder even up to 4 times a day. Discussion was had with Hospitalist in [place] regarding her complex medical condition, the fact that she is really requiring more care than on swing bed, multiple specialty needs including Urology and probably GI with this enteritis because we are even discussing putting her on a celiac diet that the patient should be seen in [place] for further aggressive cares; although, she is not desiring to have any surgeries and is a code level 2. There is no indications for her to be on hospice at this junction, but certainly she is open to that if the need arises. PHYSICAL EXAMINATION: Vital Signs: Discharging vitals include a temperature of 97.9, weight 92 kg, pulse 67, blood pressure 117/67, respiratory rate 18, O2 97% on room air. General: She is in no acute distress. Heart: Regular rate and rhythm. Lungs: Sounds are clear to auscultation bilaterally without crackles or wheezes. Abdomen: Positive bowel sounds, soft, but distended, nontender. Extremities: Warm and dry. She actually has just trace edema to her legs. Her arm edema has improved. Mental Status: She is alert and orientated x3. Skin: She is overall just mildly pale. The coccyx area was not examined today. Psych: She appears to be mildly down, but capable of making decisions and in better spirits this week actually than the previous week. DISCHARGE PLANS AND INSTRUCTIONS: Discussion about transfer was had with her and her son and the patient is in agreement. Otherwise, plan, the patient transferred to [place], Dr. Curry is the accepting physician. MKA: 08/16/2018 16:58:27 MODL: 08/16/2018 23:56:40 /[id number]
== END 2018-08-16 16:40 | disposition short-term general hospital (02) | DRG 555 ==
LOC: VM.MS 13:20
PROVIDERS: ADMIT Internal Medicine; ATTEND Internal Medicine
DX: M62.81 Muscle weakness (generalized) (principal); E43 Unspecified severe protein-calorie malnutrition; N17.9 Acute kidney failure, unspecified; I50.32 Chronic diastolic (congestive) heart failure; E44.0 Moderate protein-calorie malnutrition; L02.818 Cutaneous abscess of other sites; L03.113 Cellulitis of right upper limb; M46.20 Osteomyelitis of vertebra, site unspecified; K56.609 Unspecified intestinal obstruction, unspecified as to partial versus complete obstruction; N13.30 Unspecified hydronephrosis; K52.9 Noninfective gastroenteritis and colitis, unspecified; E55.9 Vitamin D deficiency, unspecified; Z68.29 Body mass index [BMI] 29.0-29.9, adult; E53.8 Deficiency of other specified B group vitamins; I48.2 Chronic atrial fibrillation; Q82.0 Hereditary lymphedema; E83.42 Hypomagnesemia; D63.8 Anemia in other chronic diseases classified elsewhere; F43.20 Adjustment disorder, unspecified; E16.2 Hypoglycemia, unspecified; R33.9 Retention of urine, unspecified; N28.9 Disorder of kidney and ureter, unspecified; B96.20 Unspecified Escherichia coli [E. coli] as the cause of diseases classified elsewhere; B96.1 Klebsiella pneumoniae [K. pneumoniae] as the cause of diseases classified elsewhere; Z88.8 Allergy status to other drugs, medicaments and biological substances; Z95.0 Presence of cardiac pacemaker; Z79.01 Long term (current) use of anticoagulants; Z98.84 Bariatric surgery status; Z79.899 Other long term (current) drug therapy; Z85.42 Personal history of malignant neoplasm of other parts of uterus; E66.9 Obesity, unspecified; Z86.14 Personal history of Methicillin resistant Staphylococcus aureus infection; Z87.440 Personal history of urinary (tract) infections
CPT/HCPCS: 36415; 51701; 51702; 51703; 74019; 74177; 80048; 80053; 80069; 82962; 82977; 83605; 83735; 85025; 85610; 85652; 87070; 87077; 87186; 97110-GO; 97110-GP; 97116-GP; 97164-GP; 97165-GO; 97530-GP; A9270-GY; J3420; J7042; J7060; Q0164; Q9967